=== PATIENT | female | born 2005 | race Caucasian/White ===

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

== ENCOUNTER 2025-01-05 07:26 | Outpatient (CLI) | payer MEDICAID, SELFPAY ==
[2025-01-05 09:35] VITALS: BP 127/73; PULSE 92; TEMP 36.8
[2025-01-05 09:37] VITALS: BP 127/73; PULSE 92
[2025-01-05 10:41] LABS: Hemoglobin A1C 6.4 % (<5.7)
--- NOTE | 2025-02-01 11:46 | W.OBNST ---
Date of service: 01/06/25 Time of Service: 12:00 NST Evaluation Reason for NST Reasons for Nonstress Test: GDM-INSULIN Gestational Age Gestational Age in Weeks and Days: 37 Weeks and 6Days Test and Monitor Explained Test/Monitor Explained: Test Explained and Monitor Explained Vital Signs Blood Pressure: 127/73 Pulse: 92 Temperature: 98.2 F NST Information Date on Monitor: 01/05/25 Time on Monitor: 09:33 Date off Monitor: 01/05/25 Time off Monitor: 09:57 Total Time on Monitor: 24 NST Interventions: PO Hydration NST Evaluation Patient States Movement: Present FHR Baseline: 140 Variability: Moderate 6-25 bpm Accelerations: 15x15 Decelerations: None NST Results: Reactive Note Ultrasound Done: N/A. NST Note Note: Category 1, reactive NST. NST Reviewed and Verified by: Jossy Mccann
[2025-02-01 11:47] VITALS: BP 127/73; PULSE 92; TEMP 36.8
== END 2025-01-05 10:00 ==
LOC: BCD 08:28 → OBS 09:33
PROVIDERS: Obstetrics & Gynecology; Visit Provider Obstetrics & Gynecology
DX: O24.414 Gestational diabetes mellitus in pregnancy, insulin controlled (principal); Z3A.37 37 weeks gestation of pregnancy
CPT/HCPCS: 36415; 59025; 83036

== ENCOUNTER 2025-01-07 07:40 | Outpatient (CLI) | payer MEDICAID, SELFPAY ==
[2025-01-07 15:38] VITALS: BP 130/77; PULSE 104
[2025-01-07 15:40] VITALS: BP 130/77; PULSE 104; TEMP 36.6
[2025-01-07 16:23] VITALS: BP 130/77; PULSE 104; TEMP 36.6
--- NOTE | 2025-01-07 16:39 | W.OBNST ---
Date of service: 01/07/25 Time of Service: 16:39 NST Evaluation Reason for NST Reasons for Nonstress Test: GDM-INSULIN Gestational Age Gestational Age in Weeks and Days: 36 Weeks and 3Days Test and Monitor Explained Test/Monitor Explained: Test Explained, Monitor Explained and Patient Verbalized Understanding Vital Signs Blood Pressure: 130/77 Pulse: 104 Temperature: 97.9 F NST Information Date on Monitor: 01/07/25 Time on Monitor: 15:40 Date off Monitor: 01/07/25 Time off Monitor: 16:20 Total Time on Monitor: 40 NST Interventions: PO Hydration NST Evaluation Patient States Movement: Present FHR Baseline: 130 Variability: Moderate 6-25 bpm Accelerations: 15x15 Decelerations: None NST Results: Reactive Note Ultrasound Done: N/A. NST Note Note: Category 1, reactive nonstress test. Twice weekly NSTs. NST Reviewed and Verified by: Jossy Mccann
[2025-01-07 16:40] VITALS: BP 130/77; PULSE 104; TEMP 36.6
== END 2025-01-07 16:35 ==
LOC: BCD 09:55 → OBS 15:30
PROVIDERS: Visit Provider Obstetrics & Gynecology
DX: O24.414 Gestational diabetes mellitus in pregnancy, insulin controlled (principal); Z3A.36 36 weeks gestation of pregnancy
CPT/HCPCS: 59025

== ENCOUNTER 2025-01-11 15:13 | Outpatient (CLI) | payer MEDICAID, SELFPAY ==
[2025-01-11 15:30] VITALS: BP 134/72; PULSE 83; TEMP 36.9
[2025-01-11 15:46] VITALS: BP 134/72; PULSE 83
[2025-01-11 16:07] VITALS: BP 134/72; PULSE 83; TEMP 36.9
--- NOTE | 2025-01-11 16:52 | W.OBNST ---
Date of service: 01/11/25 Time of Service: 16:53 NST Evaluation Reason for NST Reasons for Nonstress Test: GDM-INSULIN Gestational Age Gestational Age in Weeks and Days: 37 Weeks and 0Days Test and Monitor Explained Test/Monitor Explained: Test Explained Vital Signs Blood Pressure: 134/72 Pulse: 83 Temperature: 98.4 F Urine Results Urine Protein: Positive Urine Ketones: Positive Urine Glucose: Negative Urine Blood: Negative NST Information Date on Monitor: 01/11/25 Time on Monitor: 15:30 Date off Monitor: 01/11/25 Time off Monitor: 16:00 Total Time on Monitor: 30 NST Interventions: PO Hydration NST Evaluation Patient States Movement: Present FHR Baseline: 125 Variability: Moderate 6-25 bpm Accelerations: 15x15 Decelerations: None NST Results: Reactive Note Ultrasound Done: N/A. NST Note Note: Category 1, reactive NST. Reasonable glycemic control. Will increase NPH in the morning from 20 to 24 units. Continue surveillance. Labor induction discussed. Scheduled 01/17 NST Reviewed and Verified by: Jossy Mccann
[2025-01-11 16:54] VITALS: BP 134/72; PULSE 83; TEMP 36.9
== END 2025-01-11 16:43 | disposition home health service (06) ==
LOC: BCD 15:18 → OBS 15:22
PROVIDERS: Visit Provider Obstetrics & Gynecology
DX: O24.414 Gestational diabetes mellitus in pregnancy, insulin controlled (principal); Z3A.37 37 weeks gestation of pregnancy
CPT/HCPCS: 59025

== ENCOUNTER 2025-01-17 05:13 | Inpatient (IN) | payer MEDICAID, SELFPAY ==
[2025-01-17] VITALS (11 sets, daily range): BP systolic 127–157; BP diastolic 76–94; PULSE 73–95; RESP 14–18; TEMP 36.3–36.9; O2SAT 98–99; BMI 40.1
[2025-01-17 06:24] LABS: Abs Immature Grans 0.03 10^3/uL (0.0-0.06); HCT 30.9 % (36.0-46.0); HGB 9.7 g/dL (11.2-15.7); Immature Grans % 0.3 %; MCH 24.3 pg (27.0-33.0); MCHC 31.4 % (32.0-36.0); MCV 77 fL (80-95); MPV 10.5 fL (8.0-11.0); Platelet Count 300 10^3/uL (130-400); RBC 3.99 10^6/uL (3.93-5.22); RDW 14.7 % (11.7-14.6); RDW-SD 41.2 fL; WBC 9.57 10^3/uL (4.4-10.8)
[2025-01-17 06:39] LABS: ALT 12 U/L (14-59); AST 13 U/L (15-37); Albumin 2.3 g/dL (3.4-5.0); Alkaline Phosphatase 102 U/L (46-116); Anion Gap 10.7 mmol/L (3-11); BUN 11 mg/dL (7-18); Bilirubin, Total 0.4 mg/dL (0.2-1.0); CO2 23.3 mmol/L (21.0-32.0); Calcium 8.7 mg/dL (8.5-10.1); Chloride 103 mmol/L (98-107); Estimated GFR 132.52 (mL/min/1.73m2); Glucose 106 mg/dL (74-106); Potassium 4.1 mmol/L (3.5-5.1); Sodium 137 mmol/L (136-145); Total Protein 6.8 g/dL (6.4-8.2)
--- NOTE | 2025-01-17 06:40 | W.PM.OBHPL1 ---
Date of service: 01/17/25 Time of Service: 06:40 Assessment and Plan Assessment and plan (1) : Status: Acute Assessment and plan: Patient is a 19-year-old female primigravida at 37 weeks and 4 days. She has had elevated blood pressures prior to , and currently has normal blood pressure and is not on medication, however risk is present. She also has diabetes for which she has been taking insulin for glycemic control. More recently she has been on 26 units of NPH in the morning and 36 units of NPH in the evenings. She reports good glycemic control at this point. We will monitor her blood sugars every 4 hours throughout her labor and treat accordingly. She has a category 1, reactive NST today with a cervix that is 1, 50%, mid position, soft and having irregular contractions. Misoprostol, 25 mcg dose was placed this morning. She is known to be group B strep positive. Orders are placed for antibiotic prophylaxis once active. (2) Pregestational diabetes mellitus, modified White class C: Status: Acute Assessment and plan: Labor induction today (3) Susceptible to varicella (non-immune), currently : Status: Acute Assessment and plan: Varicella vaccine postdelivery (4) Group B Streptococcus carrier, +RV culture, currently : Status: Acute Assessment and plan: Penicillin ordered when active (5) Chronic hypertension affecting : Status: Acute Assessment and plan: Monitor blood pressures OB-HPI Labor/Delivery History of Present Illness Reason for Visit: IOL Chief Complaint: Scheduled Induction of Labor Indication for Induction: Chronic Hypertension and Gestational Diabetes. SAMANTHA Calculator Estimated Delivery Date Method Current WG Current Estimate 02/04/25 Ultrasound #2 37w 3d Other Estimates 02/11/25 LMP (Uncertain) 36w 3d 02/01/25 Ultrasound #1 37w 6d Comments: Patient seen in the [facility] for labor induction. She is a prime up with an EDC of 02/04/2025. She is currently 37 weeks and 3 days. She has a complicated by social situation orders, anemia with a hemoglobin of 9.7 today, and gestational diabetes with poor control. Overall, more recently, she has had higher insulin requirements with 26 units of NPH in the morning and 30 6 in the evening. She reports fastings are less than 95 with an occasional elevated 2-hour due to dietary indiscretions. Recently, baby's been moving and active. She has no signs or symptoms of preeclampsia. We do lengthy conversation today regarding labor induction which includes prolonged labor, increased risk of bleeding, need for cervical ripening initially. She has good understanding of these. She will have pain control as needed. She is group B strep positive, and will have antibiotic prophylaxis when a in active labor. She will have active management of the third stage and will have careful monitoring of blood loss, particularly in the face of a hemoglobin of 9.7 this morning. All of her questions have been answered and patient understands the risks and benefits of labor induction. She does understand that with late deliveries, and in the face of gestational diabetes, baby may require some amount of support postdelivery. This includes but not limited to respiratory support, pediatrics in attendance if necessary. This morning, she will have cervical ripening initially with misoprostol vaginally. Baseline laboratory studies were obtained. All questions answered History of Present Expected Delivery Route/Plan - MD (pre-gest DM, HTN, LFT's) FOB/not together - Rafi (first child) may not be involved BB Specific Issues/Plan 1. Preexisting DM: - Early 1hr OGTT 154; 3hr OGTT F 116, 1Hr 153, 2hr 188, 3hr 120 - POC QID glucose tracking: started 09/14/24; inconsistent recordings w/frequent elevations & inconsistency - A1C: 6.5 (09/14) - Nutrition consult: Seen 11/23 - MFM consult: Completed 12/02 - Growth US's q4 weeks: needs 36wk sono - screening: Twice weekly NSTs initiated 12/20; Fri/ - Current meds: NPH 14 U AM / 36 U PM (as of 12/30) - Anticipate delivery 39wks or earlier if not well controlled 2. Chronic HTN no meds: - Baseline PreE labs: slightly elevated LFT's, nml plts, nml pr/cr ratio - Start baby ASA - CMP q trimester (normal 09/29), Hep panel (negative), 24 hr protein (Reminded again 10/25, UPCR normal) 3. 5P's positive. Initial UDS=neg, 28wk ___ 4. Social/Community Needs - Apt made with 09/14/24 5. Varicella non-immune 6. Obesity in : - Starting BMI / weight: 39 / 220 lbs - Early 1hr OGTT: 7. H/O transamnitis - ALT and AST: 98 and 41 (08/26/24); 20 and 10 (09/29/24) 8. Single umbilical artery - echocardiogram pending 9. GBS positive - As of 12/30 *SCHEDULED FOR IOL FOR 37 09/17 ON 01/17/25 AT 5 AM *Repeat A1C 01/05 *Provide with note for work regarding IOL and need for twice weekly NSTs on 01/05 Review of Systems All systems reviewed & are unremarkable except as noted in HPI and below Eyes Eyes: Reports as per HPI and Reports system reviewed and no additional complaints, except as documented ENT Ears, Nose, Mouth, and Throat: Reports system reviewed and no additional complaints, except as documented and Reports as per HPI Cardiovascular Cardiovascular: Reports system reviewed and no additional complaints, except as documented, Denies chest pain and Denies irregular heart rhythm Respiratory Respiratory: Reports system reviewed and no additional complaints, except as documented, Denies chest congestion and Denies cough Gastrointestinal Gastrointestinal: Reports system reviewed and no additional complaints, except as documented Genitourinary Genitourinary: Reports system reviewed and no additional complaints, except as documented Neurologic Neurologic: Reports system reviewed and no additional complaints, except as documented PFSH All Active Problems (Updated 01/17/25 @ 06:53 by Jossy Mccann DO) Group B Streptococcus carrier, +RV culture, currently (Acute) Decreased movement (Acute) Food insecurity (Acute) Elevated liver enzymes (Acute) Chronic hypertension (Acute) Financial insecurity (Acute) Elevated LFTs (Acute) Pregestational diabetes mellitus, modified White class C (Acute) Susceptible to varicella (non-immune), currently (Acute) Chronic hypertension affecting (Acute) BMI 40.0-44.9, adult (Acute) (Acute) Depression (Chronic) Anxiety (Chronic) Medical History Family history of diabetes mellitus in grandmother Family history of diabetes during Elevated glucose Asthma Acute stress reaction Snoring (08/15/16) Tonsillar hypertrophy (10/07/16) Dysmenorrhea in adolescent OCP started 06/2019 Family History Mother Mental disorder DEPRESSION AND ANXIETY Gestational diabetes Substance use disorder off and on about 5 years, clean now GRANDPARENT Diabetes MGM Asthma MGM Social History Smoking/Tobacco Use Status: Never Second Hand Exposure: Yes Smoking risk assessment performed?: Yes Alcohol Intake: never Drug use: Rarely Substance use type: does not use Details: one time tried an edible with marijuana Adopted: No Foster care: No Housing: apartment Education Level: high school Details: [employer] 23-24 Pets and animals: Yes (1 bunny) Pets and animals: dog(s) Current gender identity: female What type of physical activity do you participate in: other Details: Lacrosse, basketball Seatbelt use: always Helmet use: Yes Helmet use: always Water heater temp set <120 deg: Yes Fire extinguisher in home: Yes Carbon monox detector in home: Yes Firearms in home: No Do you feel safe at home: Yes Do you feel safe in your relationship?: Yes History History 1 Para 0 Hx # Term Pregnancies 0 Multiple births Hx # Pregnancies Ectopic pregnancies AB induced Hx Number of Living Children AB spontaneous Meds Allergies and Home Medications Allergies Allergy/AdvReac Type Severity Reaction Status Date / Time cabbage Allergy Intermediate HIVES Verified 12/30/24 13:39 No Known Drug Allergies Allergy Other (See Verified 12/30/24 13:39 Comment) Home Medications ?Medication ?Instructions ?Recorded ?Confirmed ?Type inhalational spacing device #1 ea 11/25/22 01/17/25 Rx (Aerochamber MV spacer) vitamin #56-iron 35 mg 1 cap PO DAILY #90 caps 07/12/24 01/17/25 Rx and 5 mg-folic acid 1 mg-dha capsule alcohol swabs 1 pad topical QID #100 ea 09/14/24 01/17/25 Rx blood-glucose meter (OneTouch #1 ea 09/14/24 01/17/25 Rx Verio Flex Meter) pen needle, diabetic 33 gauge x #100 ea 11/03/24 01/17/25 Rx 5/16 (Comfort EZ Pen [place]) lancets 30 gauge (Onetouch Delica #100 ea 11/10/24 01/17/25 Rx Safety Lancet) blood sugar diagnostic (OneTouch #100 ea 11/30/24 01/17/25 Rx Verio test strips) insulin NPH isoph U-100 human 100 20 unit (0.2 mL) subcut QAM 90 01/07/25 01/17/25 Rx unit/mL (3 mL) subcutaneous pen days #18 mL (Humulin N NPH U-100 Insulin KwikPen) insulin NPH isoph U-100 human 100 34 unit (0.34 mL) subcut QHS 90 01/07/25 01/17/25 Rx unit/mL (3 mL) subcutaneous pen days #30.6 mL (Humulin N NPH U-100 Insulin KwikPen) Exam Physical Exam Vital signs: Temp Pulse Resp BP Pulse Ox 97.7 F 85 17 127/86 98 01/17/25 06:02 01/17/25 06:02 01/17/25 06:02 01/17/25 06:02 01/17/25 06:02 Vital Signs Reviewed: Yes Constitutional Constitutional: no acute distress Detailed Labor and Delivery Exam Dilation: 1 Effacement (%): 50 station: -3 Cervix position: mid Consistency: soft Larsen Score: Cervical Points Exam 0 1 2 3 Dilation Closed 1-2cm 3-4 cm 5-6cm Effacement 0-30% 40-50% 60-70% 80% Consistency Firm Medium Soft Station -3 -2 -1,0 +1,+2 Position Posterior Mid Anterior LARSEN Score(Cervical Ripeness Score): 4 Contraction Frequency(min): 4 Contraction Duration(sec): 60 Contraction Intensity: Mild Fetus A Heart Rate Baseline: 125 Monitor Accelerations: 15 X 15 Monitor Decelerations: None Variability: Moderate (6-25 BPM) Presentation: Vertex HEENT Exam HEENT Exam: Normal Neck Exam Neck Exam: Normal Chest/Brest/Axilla Exam Chest Exam: Normal Respiratory Exam Respiratory Exam: Normal Cardiovascular Exam Cardiovascular Exam: Normal Results Results Group Beta Strep: Positive Blood Type: A+ Rubella Status: Immune Varicella Immunity: Nonimmune Abnormal Lab Findings: Abnormal Labs 01/17/25 06:08 Hgb 9.7 L Hct 30.9 L MCV 77 L MCH 24.3 L MCHC 31.4 L RDW 14.7 H Ultrasound OB Ultrasound for ANDREA. (12) Indication: labor induction, DM Total ANDREA: 12 Exam complete and Ultrasound for presentation. Indication: IOL Presentation: Cephalic. Exam complete. Risk Assessment Risk for Shoulder Dystocia Historical/Initial OB: POSITIVE FOR: Pre- BMI>30; NEGATIVE FOR: Pelvic Abnormality, Previous Shoulder Dystocia or Previous Macrosomia Increased Risk?: Yes Delivery Plan @ 36wks: IOL at 37 4/7 Risk for Pre-Eclampsia Daily Dose ASA Indicated: Yes Date Initiated/Initials: 08/26/24 Yes, if one or more: POSTIVE FOR: Chronic HTN (questionable white coat syndrome); NEGATIVE FOR: Hx Pre-E/Gest HTN, Multiple Gestation, Pre-gestational DM, Renal Disease, Systemic Lupus or APA Syndrome Yes, if 2 or more: POSITIVE FOR: Nulliparity and BMI>30 Risk for Post- Hemorrhage Initial: NEGATIVE FOR: Multiple Gestation, Previous PPH, Known Clotting Deficiency, Grand Multiparity or Anticoagulation At Risk?: No Counseled re: Active Management: Yes Date/Initials: KJ 01/17/25 Risks Reviewed Risks Reviewed Upon Admission: Yes
[2025-01-17] MEDS: miSOPROStol 25 MCG TAB VG ×2 (06:54→12:30)
[2025-01-17] MEDS: Insulin NPH-Human 300 UNITS/3 ML PEN 26 UNIT SC (08:45)
[2025-01-17] MEDS: Normal Saline Flush 10 ML SYR IVP ×3 (08:47→19:50)
--- NOTE | 2025-01-17 17:50 | W.ANESPRE ---
General Info Date of Service Date Performed: 01/17/25 Height: 5 ft 3 in Weight: 102.965 kg Body Mass Index (BMI): 40.1 Meds Allergies and Home Medications Allergies Allergy/AdvReac Type Severity Reaction Status Date / Time cabbage Allergy Intermediate HIVES Verified 12/30/24 13:39 No Known Drug Allergies Allergy Other (See Verified 12/30/24 13:39 Comment) Home Medication ?Medication ?Instructions ?Recorded inhalational spacing device #1 ea 11/25/22 (Aerochamber MV spacer) vitamin #56-iron 35 mg 1 cap PO DAILY #90 caps 07/12/24 and 5 mg-folic acid 1 mg-dha capsule alcohol swabs 1 pad topical QID #100 ea 09/14/24 blood-glucose meter (HolganixTouch #1 ea 09/14/24 Verio Flex Meter) pen needle, diabetic 33 gauge x #100 ea 11/03/2411/26 (Comfort EZ Pen [place]) lancets 30 gauge (Onetouch Delica #100 ea 11/10/24 Safety Lancet) blood sugar diagnostic (HolganixTouch #100 ea 11/30/24 Verio test strips) insulin NPH isoph U-100 human 100 20 unit (0.2 mL) subcut QAM 90 01/07/25 unit/mL (3 mL) subcutaneous pen days #18 mL (Humulin N NPH U-100 Insulin KwikPen) insulin NPH isoph U-100 human 100 34 unit (0.34 mL) subcut QHS 90 01/07/25 unit/mL (3 mL) subcutaneous pen days #30.6 mL (Humulin N NPH U-100 Insulin KwikPen) Current Visit Medications: Current Medications Generic Name Dose Route Start Last Admin Trade Name Freq PRN Reason Stop Dose Admin Ringer's Solution 1,000 mls @ 200 mls/hr 01/17/25 06:45 IV INFUSION EMELI Penicillin G Potassium 3,000, 50 mls @ 100 mls/hr 01/17/25 10:00 000 units/ Sodium Chloride IVPB Q4H EMELI IV Miscellaneous Supplies 1 each 01/17/25 06:45 Iv Access IV DIRECTED EMELI Misoprostol 25 mcg 01/17/25 07:00 01/17/25 12:30 Misoprostol 25 Mcg Tab VG 25 mcg Q4H EMELI Administration Sodium Chloride 0 ml 01/17/25 05:47 Normal Saline Flush 10 Ml Syr IVP PRN PRN Sodium Chloride 0 ml 01/17/25 08:30 01/17/25 08:47 Normal Saline Flush 10 Ml Syr IVP 10 ml BID EMELI Administration Sodium Chloride 0 ml 01/17/25 06:35 Normal Saline 10 Ml Vial IJ DIRECTED PRN Terbutaline Sulfate 0.25 mg 01/17/25 06:35 Terbutaline 1 Mg/Ml Vial SC PRN PRN Zolpidem Tartrate 10 mg 01/17/25 21:00 Zolpidem 5 Mg Tab PO 01/18/25 06:00 2100 EMELI PFSH Active Problems Active Problems: Problem Status Onset Code Group B Streptococcus carrier, +RV culture, currently Acute O99.820 Decreased movement Acute O36.8190 Food insecurity Acute Z59.41 Elevated liver enzymes Acute R74.8 Chronic hypertension Acute I10 Financial insecurity Acute Z59.86 Elevated LFTs Acute R79.89 Pregestational diabetes mellitus, modified White class C Acute O24.319 Susceptible to varicella (non-immune), currently Acute O09.899, Z28.39 Chronic hypertension affecting Acute O10.919 BMI 40.0-44.9, adult Acute Z68.41 Acute Z34.90 Depression Chronic F32.9 Anxiety Chronic F41.9 Medical History Medical History Family history of diabetes mellitus in grandmother Family history of diabetes during Elevated glucose Asthma Acute stress reaction Snoring (08/15/16) Tonsillar hypertrophy (10/07/16) Dysmenorrhea in adolescent OCP started 06/2019 Tobacco Smoking/Tobacco Use Status: Never Passive smoking exposure: Yes (Mother, outside only) Second hand exposure: Yes Alcohol Alcohol Intake: never Substance Use Substance use: Rarely Substance use type: does not use Details: one time tried an edible with marijuana Prental History History 1 Para 0 Hx # Term Pregnancies 0 Multiple births Hx # Pregnancies Ectopic pregnancies AB induced Hx Number of Living Children AB spontaneous Vital Signs and Lab Results Vital Signs Most Recent Vital Signs in EMR: Most Recent Vital Signs Temp Pulse Resp BP Pulse Ox 36.7 C 74 14 140/92 H 98 01/17/25 14:36 01/17/25 16:33 01/17/25 16:32 01/17/25 16:32 01/17/25 16:33 Point of Care Results Point of Care Results: Finger Stick Blood Glucose 118 01/17/25 14:39 Lab Results 01/17/25 06:08 01/17/25 06:08 Blood Type / Crossmatch: Antibody Screen NEGATIVE Today Complete Blood Count: WBC, (4.4-10.8) 9.57 10^3/uL Today, 06:08 RBC, (3.93-5.22) 3.99 10^6/uL Today, 06:08 Hgb, (11.2-15.7) 9.7 g/dL L Today, 06:08 Hct, (36.0-46.0) 30.9 % L Today, 06:08 Plt Count, (130-400) 300 10^3/uL Today, 06:08 Complete Metabolic Panel: Sodium, (136-145) 137 mmol/L Today, 06:08 Potassium, (3.5-5.1) 4.1 mmol/L Today, 06:08 Chloride, (98-107) 103 mmol/L Today, 06:08 Carbon Dioxide, (21.0-32.0) 23.3 mmol/L Today, 06:08 BUN, (7-18) 11 mg/dL Today, 06:08 Creatinine, (0.55-1.02) 0.6 mg/dL Today, 06:08 Est GFR (CKD-EPI 2020), (mL/min/1.73m2) 132.52 Today, 06:08 Calcium, (8.5-10.1) 8.7 mg/dL Today, 06:08 Albumin, (3.4-5.0) 2.3 g/dL L Today, 06:08 Glucose, (74-106) 106 mg/dL Today, 06:08 Hemoglobin A1c, (<5.7) 6.4 % H 01/05/25, 09:54 Liver Function Panel: ALT, (14-59) 12 U/L L Today, 06:08 AST, (15-37) 13 U/L L Today, 06:08 Anesthesia Assessment and Plan Anesthesia History Personal History: No History of Anesthesia Complications Family History: No Family History of Anesthesia Complications Exercise Tolerance Exercise Tolerance: Metabolic Equivalents>4 Pertinent Negatives Pertinent Negatives: No Symptoms of GERD Cardiac & Pulmonary Exam Cardiac Exam: Normal S1/S2 Heart Sounds Pulmonary Exam: Clear Bilateral Breath Sounds Implantable Cardiac Device Does patient have a Pacemaker or an ICD?: No Airway Exam Known Difficult Airway: No Mallampati Class: 2 Mouth Opening: Normal (> 3cm) Thyromental Distance: Greater than 3 cm Neck Range of Motion: Full ROM Neck Circumference: Normal Teeth Condition: Generalized Poor Dentition ASA Classification ASA Score: ASA 2 Emergency Case?: No NPO Status NPO Status: NPO Clears >2 hours, Solids >8 hours Status Status: Confirmed (37(+) weeks) Anesthesia Plan Resuscitation Status: Full Code Anesthesia Technique: Labor Epidural Airway Planned: Natural Airway Monitors Used: Standard Monitors
[2025-01-17] MEDS: Penicillin G POT. 5,000,000 UNITS in Normal Saline 100 ML 200 UNITS IVPB (18:25)
[2025-01-17] MEDS: AMPICILLIN SODIUM 2 GM in Normal Saline 100 ML IVPB (19:40)
[2025-01-17] MEDS: Lactated Ringers 1,000 ML 200 ML IV (19:40)
[2025-01-17] MEDS: Insulin NPH-Human 300 UNITS/3 ML PEN 36 UNIT SC (20:29)
[2025-01-17] MEDS: Zolpidem 5 MG TAB 10 MG PO (22:07)
--- NOTE | 2025-01-17 23:18 | W.PM.PROGNOT ---
Date of Service Date of service: 01/17/25 Time of Service: 08:00 Assessment and Plan Assessment and plan (1) Gestational diabetes: Status: Acute Assessment and plan: 19 yo at 37 3/7 as dated by 12 wk US presented to L&D this morning for IOL for poorly controlled pre-gestational diabetes in the setting of chronic HTN, obesity in , single-umbilical artery, VZV non-immune, and GBS positive. She recieved a dose of vaginal cytotec this morning. She reports feeling well. She enjoyed a good breakfast and BS checks have been appropriate. She will continue to undergo induction with misoprostol. PCn written to be initiated later. Exam Narrative Exam Narrative: Well nourished female in no immediate distress. In good spirits. FHT cat 1, toco: rare. Objective Last Vital Signs Temp 98.4 F 01/17/25 21:45 Pulse 82 01/17/25 21:45 Resp 16 01/17/25 21:45 BP 139/94 H 01/17/25 21:45 Pulse Ox 99 01/17/25 21:45 Laboratory Results - last 24 hr 01/17/25 06:08 WBC 9.57 RBC 3.99 Hgb 9.7 L Hct 30.9 L MCV 77 L MCH 24.3 L MCHC 31.4 L RDW 14.7 H Plt Count 300 MPV 10.5 Immature Gran % 0.3 Neutrophils % 65.1 Lymphocytes % 27.3 Monocytes % 6.6 Eosinophils % 0.4 Basophils % 0.3 Nucleated RBC % 0.0 Absolute Neutrophils 6.23 Absolute Lymphocytes 2.61 Absolute Monocytes 0.63 Absolute Eosinophils 0.04 Absolute Basophils 0.03 Sodium 137 Potassium 4.1 Chloride 103 Carbon Dioxide 23.3 Anion Gap 10.7 BUN 11 Creatinine 0.6 Est GFR (CKD-EPI 2020) 132.52 Glucose 106 Calcium 8.7 Total Bilirubin 0.4 AST 13 L ALT 12 L Alkaline Phosphatase 102 Total Protein 6.8 Albumin 2.3 L ABO/Rh A Positive Antibody Screen NEGATIVE Time Spent with Patient Time Spent with Patient: 25-34 minutes Time was spent: preparing to see the patient(eg.review tests), obtaining and/or reviewing separately otained hiistory, ordering medications,tests, procedures, referring, communicating with other health child care center assistant director, indepentently interpreting results and counseling the patient
--- NOTE | 2025-01-17 23:46 | PGE_ITS ---
Date of Service Date of service: 01/17/25 Time of Service: 12:00 Assessment and Plan Assessment and plan (1) Gestational diabetes: Status: Acute Assessment and plan: Patient is found resting comfortably in her bed. She reports being able to feel the contractions but only mildly. SVE remained unchanged and she recieved her next dose of vaginal misoprostol. We had a discussed regarding the possible utility of a Cook catheter in addition to Misoprostol and she is interested. Materials collected by nurse. (2) Chronic hypertension affecting : Status: Acute Exam Narrative Exam Narrative: Well nourished female in no immediate distress. Happy. SVE 1-2/thick/-3/medium/midline Objective Last Vital Signs Temp 98.4 F 01/17/25 21:45 Pulse 82 01/17/25 21:45 Resp 16 01/17/25 21:45 BP 139/94 H 01/17/25 21:45 Pulse Ox 99 01/17/25 21:45 Laboratory Results - last 24 hr 01/17/25 06:08 WBC 9.57 RBC 3.99 Hgb 9.7 L Hct 30.9 L MCV 77 L MCH 24.3 L MCHC 31.4 L RDW 14.7 H Plt Count 300 MPV 10.5 Immature Gran % 0.3 Neutrophils % 65.1 Lymphocytes % 27.3 Monocytes % 6.6 Eosinophils % 0.4 Basophils % 0.3 Nucleated RBC % 0.0 Absolute Neutrophils 6.23 Absolute Lymphocytes 2.61 Absolute Monocytes 0.63 Absolute Eosinophils 0.04 Absolute Basophils 0.03 Sodium 137 Potassium 4.1 Chloride 103 Carbon Dioxide 23.3 Anion Gap 10.7 BUN 11 Creatinine 0.6 Est GFR (CKD-EPI 2020) 132.52 Glucose 106 Calcium 8.7 Total Bilirubin 0.4 AST 13 L ALT 12 L Alkaline Phosphatase 102 Total Protein 6.8 Albumin 2.3 L ABO/Rh A Positive Antibody Screen NEGATIVE Time Spent with Patient Time Spent with Patient: 25-34 minutes Time was spent: preparing to see the patient(eg.review tests), obtaining and/or reviewing separately otained hiistory, ordering medications,tests, procedures, referring, communicating with other health home health care coordinator, indepentently interpreting results, counseling the patient and care coordination
--- NOTE | 2025-01-17 23:49 | PGE_ITS ---
Date of Service Date of service: 01/17/25 Time of Service: 17:00 Assessment and Plan Assessment and plan (1) Chronic hypertension affecting : Status: Acute Assessment and plan: Patient noted to be raoul more frequently on the monitor; FHT cat 1. Patient is notably feeling the contractions. She was consented for Cook. Cook was placed without issue according to industry standards. Patient states notable discomfort from 30 cc's in each balloon; reduced to 25 cc's in each balloon and she tolerated it better. Will hold off a pharmacological induction agent for now given discomfort. PCN ordere to be started; however, patient unable to use IV PCN; therefore, Ampicillin is ordered. (2) Gestational diabetes: Status: Acute Exam Narrative Exam Narrative: Patient feeling more uncomfortable. Wincing modestly with contractions. Cooperative and calm. Objective Last Vital Signs Temp 98.4 F 01/17/25 21:45 Pulse 82 01/17/25 21:45 Resp 16 01/17/25 21:45 BP 139/94 H 01/17/25 21:45 Pulse Ox 99 01/17/25 21:45 Laboratory Results - last 24 hr 01/17/25 06:08 WBC 9.57 RBC 3.99 Hgb 9.7 L Hct 30.9 L MCV 77 L MCH 24.3 L MCHC 31.4 L RDW 14.7 H Plt Count 300 MPV 10.5 Immature Gran % 0.3 Neutrophils % 65.1 Lymphocytes % 27.3 Monocytes % 6.6 Eosinophils % 0.4 Basophils % 0.3 Nucleated RBC % 0.0 Absolute Neutrophils 6.23 Absolute Lymphocytes 2.61 Absolute Monocytes 0.63 Absolute Eosinophils 0.04 Absolute Basophils 0.03 Sodium 137 Potassium 4.1 Chloride 103 Carbon Dioxide 23.3 Anion Gap 10.7 BUN 11 Creatinine 0.6 Est GFR (CKD-EPI 2020) 132.52 Glucose 106 Calcium 8.7 Total Bilirubin 0.4 AST 13 L ALT 12 L Alkaline Phosphatase 102 Total Protein 6.8 Albumin 2.3 L ABO/Rh A Positive Antibody Screen NEGATIVE Time Spent with Patient Time Spent with Patient: 25-34 minutes Time was spent: preparing to see the patient(eg.review tests), obtaining and/or reviewing separately otained hiistory, ordering medications,tests, procedures, referring, communicating with other health director of health care marketing, indepentently interpreting results, counseling the patient and care coordination
[2025-01-18] VITALS (90 sets, daily range): BP systolic 122–180; BP diastolic 71–105; PULSE 54–115; RESP 16–24; TEMP 36.8–37.3; O2SAT 88–100
[2025-01-18] MEDS: AMPICILLIN SODIUM 1 GM in Normal Saline 50 ML IVPB ×5 (00:57→22:11)
--- NOTE | 2025-01-18 05:53 | W.PM.PROGNOT ---
Date of Service Date of service: 01/18/25 Time of Service: 05:54 Assessment and Plan Assessment and plan (1) Pregestational diabetes mellitus, modified White class C: Status: Acute (2) Chronic hypertension affecting : Status: Acute Assessment and plan: Patient rested through the evening with one dose of Ambien. Cook catheter removed this morning without issue. Plan to initiate Pitocin after breakfast. Exam Narrative Exam Narrative: Well nourished female in no immediate found sleeping on her right side. No bleeding or leakage. Cook catheter removed without issue. SVE 2-3 / th / high / midline / soft Objective Last Vital Signs Temp 98.2 F 01/18/25 04:49 Pulse 71 01/18/25 04:49 Resp 16 01/18/25 04:49 BP 132/81 01/18/25 04:49 Pulse Ox 99 01/18/25 04:49 Laboratory Results - last 24 hr 01/17/25 06:08 WBC 9.57 RBC 3.99 Hgb 9.7 L Hct 30.9 L MCV 77 L MCH 24.3 L MCHC 31.4 L RDW 14.7 H Plt Count 300 MPV 10.5 Immature Gran % 0.3 Neutrophils % 65.1 Lymphocytes % 27.3 Monocytes % 6.6 Eosinophils % 0.4 Basophils % 0.3 Nucleated RBC % 0.0 Absolute Neutrophils 6.23 Absolute Lymphocytes 2.61 Absolute Monocytes 0.63 Absolute Eosinophils 0.04 Absolute Basophils 0.03 Sodium 137 Potassium 4.1 Chloride 103 Carbon Dioxide 23.3 Anion Gap 10.7 BUN 11 Creatinine 0.6 Est GFR (CKD-EPI 2020) 132.52 Glucose 106 Calcium 8.7 Total Bilirubin 0.4 AST 13 L ALT 12 L Alkaline Phosphatase 102 Total Protein 6.8 Albumin 2.3 L ABO/Rh A Positive Antibody Screen NEGATIVE Time Spent with Patient Time Spent with Patient: 25-34 minutes Time was spent: preparing to see the patient(eg.review tests), obtaining and/or reviewing separately otained hiistory, ordering medications,tests, procedures, referring, communicating with other health childcare provider, indepentently interpreting results, counseling the patient and care coordination
[2025-01-18] MEDS: Insulin NPH-Human 300 UNITS/3 ML PEN 26 UNIT SC (08:11)
[2025-01-18] MEDS: Oxytocin/Normal Saline 30 UNITS/500 ML BAG IV (08:28)
--- NOTE | 2025-01-18 13:03 | PGE_ITS ---
Date of Service Date of service: 01/18/25 Time of Service: 13:03 Assessment and Plan Assessment and plan (1) Pregestational diabetes mellitus, modified White class C: Status: Acute (2) Chronic hypertension affecting : Status: Acute Assessment and plan: Patient found resting comfortably. She is sitting up on a yoga ball sipping water. She is feeling her contractions. Pitocin for augmentation is running. She remains intact. heart tones category 1 and contractions are every 2-3 mostly. We discussed decreasing her oral intake to small, frequent snacks and avoiding large meals. She denies any signs or symptoms of preeclampsia, and her blood pressures remain within appropriate limits. Will continue augmenting with Pitocin. Objective Last Vital Signs Temp 98.4 F 01/18/25 12:15 Pulse 88 01/18/25 12:15 Resp 20 01/18/25 12:15 BP 139/85 01/18/25 12:15 Pulse Ox 89 L 01/18/25 12:15 Time Spent with Patient Time Spent with Patient: 25-34 minutes Time was spent: preparing to see the patient(eg.review tests), obtaining and/or reviewing separately otained hiistory, ordering medications,tests, procedures, referring, communicating with other health career development coordinator/teacher, indepentently interpreting results, counseling the patient and care coordination
--- NOTE | 2025-01-18 14:58 | PGE_ITS ---
Date of Service Date of service: 01/18/25 Time of Service: 15:03 Assessment and Plan Assessment and plan (1) Chronic hypertension affecting : Status: Acute (2) Pregestational diabetes mellitus, modified White class C: Status: Acute Assessment and plan: Patient has been on 20 mU Pitocin for 2+ hours without further evidence of effective labor. Will discontinue Pitocin, administer Calcium carbonate and Benadryl, and restart Pitocin after an hour. Exam Narrative Exam Narrative: Well nourished female in no immediate distress. Calm, cooperative. Objective Last Vital Signs Temp 98.4 F 01/18/25 12:15 Pulse 100 H 01/18/25 14:28 Resp 20 01/18/25 14:28 BP 126/74 01/18/25 14:28 Pulse Ox 99 01/18/25 14:28 Time Spent with Patient Time Spent with Patient: 25-34 minutes Time was spent: preparing to see the patient(eg.review tests), obtaining and/or reviewing separately otained hiistory, ordering medications,tests, procedures, referring, communicating with other health health care analyst, indepentently interpreting results, counseling the patient and care coordination
[2025-01-18] MEDS: diphenhydrAMINE 25 MG CAP PO (15:08)
[2025-01-18] MEDS: Calcium Carbonate *TUMS* 500 MG CHEW PO (15:08)
--- NOTE | 2025-01-18 18:24 | W.PM.PROGNOT ---
Date of Service Date of service: 01/18/25 Time of Service: 18:24 Assessment and Plan Assessment and plan (1) Pregestational diabetes mellitus, modified White class C: Status: Acute (2) Chronic hypertension affecting : Status: Acute Assessment and plan: Patient found walking the halls. She is feeling her contractions but they are not disruptive. We discussed AROM and she was consented for it. She wished to wait until her mother arrived. FHT cat 1; contractions q2-3, pit at 10, increased to 12 while in the room. SVE 3/50/-3/soft/midline. AROM@[id number]-clear fluid using a amniohook. Patient and baby tolerated well. Will continue to increase Pitocin as permissible and as needed to titrate to adequate contractions. Objective Last Vital Signs Temp 98.8 F 01/18/25 16:02 Pulse 85 01/18/25 18:22 Resp 20 01/18/25 16:02 BP 152/86 H 01/18/25 18:22 Pulse Ox 100 01/18/25 18:21 Time Spent with Patient Time Spent with Patient: 25-34 minutes Time was spent: preparing to see the patient(eg.review tests), obtaining and/or reviewing separately otained hiistory, ordering medications,tests, procedures, referring, communicating with other health certified social workers in health care, indepentently interpreting results, counseling the patient and care coordination
--- NOTE | 2025-01-18 19:16 | W.ANESNEU ---
Epidural/Spinal Catheter Date Performed: 01/18/25 Procedure Start: 18:54 Procedure Stop: 19:05 Requesting Provider: Vidhya Charles Procedure Location: Obstetrics Reason Performed: Labor Epidural Standard Monitors Applied: Blood Pressure and SpO2 Patient Position: Sitting Sedation Given (Indicate Dose Given): No Sedation given Patient Mental Status: Awake Sterility: Hand Hygiene, Surgical Cap, Surgical Mask, Sterile Gloves, Sterile Drape/Sheet and Chlorhexidine Procedure Location: L4-L5 Interspace Epidural Needle: Tuohy 17 Guage Needle Length: 4 Inch Needle Approach: Midline Epidural Procedure: Skin Prepped, Sterile Drape Placed, 1% Lidocaine to skin and subcutaneous tissue with 25G needle, Tuohy Needle placed, BOB to Saline Used, Epidural Catheter Placed, Negative Heme, Negative CSF Flow and Tuohy Needle Removed Catheter Placed?: Catheter Placed Test Dose (Indicate Dose Given): 5ml 1.5% Lidocaine with 1:200K Epinephrine Given and Negative Test Dose Loss of Resistance Depth (cm): 9 Catheter depth at skin (cm): 15 Dressing: [place] Dressing Placed, Mastisol Used and Dressing reinforced with Tape Epidural Provider Bolus (Indicate Dose Given): None Given Additives (Indicate Dose Given ): None Infusion Medication: Medication Infusion Began Medication Infusion: Ropivacaine 0.1% with Fentanyl 2mcg/ml Maintenance Infusion Rate (ml/hour): 10 PCEA Bolus Dose (ml): 5 Block Level: N/A Paresthesia: None Ultrasound: Not Used Number of Attempts (See previous attempts in note section): 1 Procedure Tolerated: No Complications and Patient tolerated well Procedure Outcome: Successful Performed By: Alejandro Fontenot
--- NOTE | 2025-01-18 19:47 | PGE_ITS ---
Date of Service Date of service: 01/18/25 Time of Service: 22:30 Assessment and Plan Assessment and plan (1) Chronic hypertension affecting : Status: Acute (2) Pregestational diabetes mellitus, modified White class C: Status: Acute Assessment and plan: Patient is s/p epidural placement. Her check immediately after her epidural was unchanged despite notable continued discomfort. Assessment revealed the epidural had never officially been turned on. After turning on the epidural, the patient reported notable improvement in her pain control; however, she seems to have a window in the RLQ. Pitocin is at 14. [facility] cat 1. [place] q3-4. Just recently, I was called to the patients room for elevated blood pressures. She has been in and out of 170's / 90-100's based on pain and contractions. She denies any concerning symptoms and her labs were normal on presentation. I highly suspect these blood pressures are an acute expacerbation of her cHTN induced by her limited pain control. Procardia 10 IR ordered for immediate control. Procardia 30 XL ordered for continued control over time. Objective Last Vital Signs Temp 98.2 F 01/18/25 18:22 Pulse 86 01/18/25 19:43 Resp 20 01/18/25 16:02 BP 156/88 H 01/18/25 19:40 Pulse Ox 99 01/18/25 19:43 Time Spent with Patient Time Spent with Patient: 25-34 minutes Time was spent: preparing to see the patient(eg.review tests), obtaining and/or reviewing separately otained hiistory, ordering medications,tests, procedures, referring, communicating with other health acute care assistant, indepentently interpreting results, counseling the patient and care coordination
[2025-01-18] MEDS: Insulin NPH-Human 300 UNITS/3 ML PEN 36 UNIT SC (22:01)
[2025-01-18] MEDS: NIFEdipine 10 MG CAP PO (22:21)
[2025-01-18] MEDS: NIFEdipine-CR 30 MG TABCR PO (22:35)
--- NOTE | 2025-01-18 23:30 | PGE_ITS ---
Date of Service Date of service: 01/18/25 Time of Service: 23:30 Assessment and Plan Assessment and plan (1) Pregestational diabetes mellitus, modified White class C: Status: Acute (2) Chronic hypertension affecting : Status: Acute Assessment and plan: Patient found resting mostly comfortably; has epidural but epidural has a bit of a window in RLQ. Patient augmenting pain management with nitrous. FHT cat 1. [place]: q2-4 with Pit at 14. SVE /-1. Assured mother of progress. Objective Last Vital Signs Temp 98.8 F 01/19/25 05:59 Pulse 133 H 01/19/25 07:18 Resp 16 01/19/25 06:01 BP 137/73 01/19/25 05:59 Pulse Ox 100 01/19/25 07:18 Time Spent with Patient Time Spent with Patient: 25-34 minutes Time was spent: preparing to see the patient(eg.review tests), obtaining and/or reviewing separately otained hiistory, ordering medications,tests, procedures, indepentently interpreting results, counseling the patient and care coordination
[2025-01-19] VITALS (107 sets, daily range): BP systolic 118–184; BP diastolic 61–86; PULSE 57–162; RESP 16–18; TEMP 36.5–37.9; O2SAT 91–100
[2025-01-19] MEDS: AMPICILLIN SODIUM 1 GM in Normal Saline 50 ML IVPB ×2 (01:36→05:40)
[2025-01-19] MEDS: FentaNYL/ROPIvacaine 2 mcg/ml and 0.1% 200 ML CADD Cassette EP ×2 (03:10→03:17)
[2025-01-19] MEDS: Lactated Ringers 1,000 ML 125 ML IV (03:18)
--- NOTE | 2025-01-19 07:18 | W.PM.PROGNOT ---
Date of Service Date of service: 01/19/25 Time of Service: 07:18 Assessment and Plan Assessment and plan (1) Pregestational diabetes mellitus, modified White class C: Status: Acute (2) Chronic hypertension affecting : Status: Acute Assessment and plan: Patient found resting in bed comfortably on her right side. Reports feeling a little back pressure but no urge to push. SVE finds her complete / +1. Patient sat up in throwns for labor down. Objective Last Vital Signs Temp 98.8 F 01/19/25 05:59 Pulse 133 H 01/19/25 07:18 Resp 16 01/19/25 06:01 BP 137/73 01/19/25 05:59 Pulse Ox 100 01/19/25 07:18 Time Spent with Patient Time Spent with Patient: 25-34 minutes Time was spent: preparing to see the patient(eg.review tests), obtaining and/or reviewing separately otained hiistory, ordering medications,tests, procedures, indepentently interpreting results and counseling the patient
--- NOTE | 2025-01-19 08:56 | OBVDS_ITS ---
Date of service: 01/19/25 Time of Service: 08:58 OB Labor/ Delivery Information Providers Nurse Electrical Instrument Maker: Vidhya Charles Non Destructive Testing Scientist: Marily Petersen Nurse: Radha Bass Nurse: Susan Lynn Labor/Delivery Information Number of Babies in Womb: 1 Steroids Given: None Reason Steroids Not Administered: N/A Group Beta Strep: N/A Antibiotics Administered: Yes Rubella Status: Immune Blood Type: A+ Varicella Immunity: Nonimmune Shoulder Dystocia: No Stages of Labor Onset of Labor Date: 01/19/25 Onset of Labor Time: 12:00 Complete Dilatation Date: 01/19/25 Complete Dilatation Time: 06:58 Labor - Stage 1 Duration: -302 minutes ROM Baby A: 01/18/25 ROM Baby A: 18:15 ROM Total Time- Baby A: [id number] Delivery Date-Baby A: 01/19/25 Delivery Time-Baby A: 08:21 Labor Stage 2 Duration: 1 hours and 23 minutes Placenta Delivery Date-Baby A: 01/19/25 Placenta Delivery Time-Baby A: 08:28 Labor-Stage 3 Duration: 7 minutes Total Length of Labor-Baby A: -219 minutes Placenta Status: Delivered Baby A Infant Gender: Male Gestational Status: Early Term (37-38.6 wks) Gestational Age in Weeks/Days: 38 Weeks and 1 Days Score-1 Minute Interval(Baby A) Heart Rate-1 minute: 100 BPM or Greater Respiratory Effort- 1 minute: Spontaneous/Strong Cry Muscle Tone-1 minute: Active Movement Reflex Response-1 minute: Prompt Response Color-1 minute: Bluish Hands or Feet Total Score-1 minute: 9 Score-5 Minute Interval(Baby A) Heart Rate- 5 minute: 100 BPM or Greater Respiratory Effort-5 minute: Spontaneous/Strong Cry Muscle Tone-5 minute: Active Movement Reflex Response-5 minute: Prompt Response Color-5 minute: [place]/No Cyanosis Total Score- 5 minute: 10 Note: On this day, Sunday, January 19, 2025, this 19-year-old G1 now P1 001 underwent a vaginal delivery at 37 weeks and 4 days to a 3230 gram baby boy (Andrea) over an intact perineum under epidural anesthesia. Patient was brought in on January 17 for an induction of labor for difficulties in controlling pregestational diabetes in the setting of chronic hypertension and two-vessel cord. She was induced with 2 doses of vaginal Cytotec as well as a Cook catheter. She was augmented with Pitocin. She did receive an epidural. GBS prophylaxis was achieved with ampicillin, and she was adequately covered. On the morning of 9 the patient was found to be fully dilated. Her pushing efforts were sufficient. After approximately 1 hour of pushing, she was able to deliver the head in IMLAN. A double nuchal was present and released without issue. The rest of the body delivered in a traditional fashion without issue. The baby was immediately vigorous. The mouth and nose were bulb suctioned, the baby was placed on the maternal abdomen, and delayed cord clamping was observed. The cord was double clamped and cut by the patient's mother under the guidance of the physician. A segment of cord was collected and set aside in the event that the cord gases would be necessary, and cord blood was collected as well. The placenta delivered without issue within 15 minutes following delivery of the baby. Pitocin was immediately initiated. Evaluation of the perineum and vagina found a second-degree perineal laceration which was repaired in a traditional fashion using 2-0 Vicryl. The patient's bleeding was initially a little more brisk than average; therefore, tranexamic acid was called for. While the nurse was working on preparing the tranexamic acid; the patient's bleeding was noted to increase and become quite brisk. 800 mcg of rectal Cytotec was placed. A bimanual exam evacuated a large clot from the uterine cavity, and with this coud? of the uterus was reassuring. I continued with simpson repair of the second-degree. Over the course of the repair, the patient's bleeding was noted to improved slowly. QBL pending. Both mother and baby tolerated the procedure well. Both are recovering appropriately.
[2025-01-19] MEDS: Ibuprofen 600 MG TAB PO (10:09)
[2025-01-19] MEDS: Hamamelis Leaf/Glycerin 100 EACH BOX PR (10:10)
[2025-01-19] MEDS: Dibucaine 1% 28 GM TUBE TP (10:11)
[2025-01-19] MEDS: Docusate Sodium 100 MG CAP PO (10:11)
--- NOTE | 2025-01-19 10:51 | W.ANESPOSTOP ---
Postoperative Evaluation Date, Time and Location Date Performed: 01/19/25 Time Performed: 10:40 Patient Location: Obstetrics Vital Signs Most Recent Imported Vital Signs: Most Recent Vital Signs Temp Pulse Resp BP Pulse Ox 37.1 C 116 H 16 127/73 100 01/19/25 05:59 01/19/25 10:44 01/19/25 06:01 01/19/25 10:44 01/19/25 07:59 Pain Score Most Recent Pain Score: Most Recent Pain Score Pain Level [Abdomen] 0 01/19/25 05:59 Pain Level 3 01/19/25 06:01 Assessment Mental Status: Awake (Alert & Oriented to Patient Baseline) Airway and Respiratory Function: Patent airway with normal (patient baseline) respiratory exam Cardiovascular Function: Hemodynamically Stable (Discussed elevated HR with RN) Hydration Status: Adequately Hydrated Nausea & Vomiting: No Nausea or Vomiting Pain: Pain is tolerable per patient Peripheral Nerve Block: Patient did not receive a nerve block
[2025-01-19] MEDS: Acetaminophen 325 MG TAB 650 MG PO ×2 (17:13→22:29)
[2025-01-19] MEDS: Normal Saline Flush 10 ML SYR IVP (22:44)
[2025-01-20 00:22] VITALS: BP 134/79; PULSE 92; RESP 17; TEMP 36.8; O2SAT 98
[2025-01-20 07:26] LABS: MCH 24.7 pg (27.0-33.0); MCHC 31.7 % (32.0-36.0); MCV 78 fL (80-95); MPV 10.6 fL (8.0-11.0); Platelet Count 222 10^3/uL (130-400); RBC 2.59 10^6/uL (3.93-5.22); RDW 15.2 % (11.7-14.6); RDW-SD 42.6 fL; WBC 13.42 10^3/uL (4.4-10.8)
[2025-01-20 07:40] VITALS: BP 133/77; PULSE 81; RESP 16; TEMP 36.4; O2SAT 98
[2025-01-20 07:57] LABS: HCT 20.2 % (36.0-46.0); HGB 6.4 g/dL (11.2-15.7)
[2025-01-20] MEDS: Acetaminophen 325 MG TAB 650 MG PO ×3 (08:03→22:00)
[2025-01-20] MEDS: NIFEdipine-CR 30 MG TABCR PO (08:03)
[2025-01-20] MEDS: Docusate Sodium 100 MG CAP PO ×2 (08:03→20:29)
[2025-01-20 12:05] VITALS: BP 118/75; PULSE 103; RESP 16; TEMP 36.7; O2SAT 97
[2025-01-20 12:14] LABS: HCT 21.3 % (36.0-46.0); MCH 24.4 pg (27.0-33.0); MCHC 31.5 % (32.0-36.0); MCV 78 fL (80-95); MPV 10.1 fL (8.0-11.0); Platelet Count 228 10^3/uL (130-400); RBC 2.75 10^6/uL (3.93-5.22); RDW 15.4 % (11.7-14.6); RDW-SD 42.6 fL; WBC 12.60 10^3/uL (4.4-10.8)
[2025-01-20 12:30] LABS: HGB 6.7 g/dL (11.2-15.7)
--- NOTE | 2025-01-20 13:05 | W.PM.OBPNV1 ---
Date of service: 01/20/25 Time of Service: 13:06 Assessment and Plan Assessment and plan (1) Normal spontaneous vaginal delivery: Status: Acute Assessment and plan: Patient is day #1 status post vaginal delivery. Overall she is doing well. She had a labor induction and appropriate vaginal . Her male was circumcised today at patient's request. (2) Pregestational diabetes mellitus, modified White class C: Status: Acute Assessment and plan: She had early diagnosis of pre-existing diabetes. During the course of her , she was controlled with NPH insulin both in the morning and afternoon. Since the time of, she has remained euglycemic. She is eating a regular diet. Will continue to monitor her blood sugars. If she has elevation, she may benefit from oral hypoglycemics versus insulin therapy. This was discussed today. (3) Chronic hypertension affecting : Status: Acute Assessment and plan: Currently on Procardia, 30 mg XL daily with good response. Will continue to monitor blood pressure (4) Anemia: Status: Chronic Assessment and plan: Anemia with hemoglobin of 6.7 today, down from 9 at the time of delivery. She did have a modest amount of bleeding. She is asymptomatic from this. She will have her vitamins, iron supplementation, and we would consider iron infusion prior to discharge. All questions were answered today Exam Physical Exam Vital signs: Temp Pulse Resp BP Pulse Ox 97.5 F L 81 16 133/77 98 01/20/25 07:40 01/20/25 07:40 01/20/25 07:40 01/20/25 07:40 01/20/25 07:40 Vital Signs Reviewed: Yes Constitutional Constitutional: no acute distress HEENT Exam HEENT Exam: Normal Neck Exam Neck Exam: Normal Respiratory Exam Respiratory Exam: Normal Cardiovascular Exam Cardiovascular Exam: Normal Fundal Exam Fundus: Below Umbilicus and Firm Extremities Exam Extremity Exam: Edema (1+ bilateral) Skin Exam Skin Exam: Normal Neurological Exam Neurological Exam: Normal Psychiatric Exam Psychiatric Exam: Normal Results Hemoglobin/Hematocrit: Hgb 6.7 g/dL (11.2-15.7) L* 01/20/25 11:55 Hct 21.3 % (36.0-46.0) L 01/20/25 11:55 Abnormal Lab Findings: Abnormal Labs 01/17/25 01/20/25 01/20/25 06:08 05:58 11:55 WBC 13.42 H 12.60 H RBC 2.59 L 2.75 L Hgb 9.7 L 6.4 L* D 6.7 L* Hct 30.9 L 20.2 L* 21.3 L MCV 77 L 78 L 78 L MCH 24.3 L 24.7 L 24.4 L MCHC 31.4 L 31.7 L 31.5 L RDW 14.7 H 15.2 H 15.4 H AST 13 L ALT 12 L Albumin 2.3 L
[2025-01-20 16:05] VITALS: BP 133/83; PULSE 93; RESP 16; TEMP 36.9; O2SAT 99
[2025-01-20] MEDS: Ferrous Sulfate 325 MG TAB PO (20:29)
[2025-01-21 00:15] VITALS: BP 137/76; PULSE 98; RESP 16; TEMP 37; O2SAT 98
--- NOTE | 2025-01-21 07:49 | W.PM.OBPNV1 ---
Date of service: 01/21/25 Time of Service: 07:49 Assessment and Plan Assessment and plan (1) Normal spontaneous vaginal delivery: Status: Acute Assessment and plan: day #2 status post vaginal after labor induction due to poorly controlled pregestational diabetes and chronic hypertension. Overall she is doing well. We are working on social situation arrangements, and living situation. She is bonding well with her . (2) Pregestational diabetes mellitus, modified White class C: Status: Acute Assessment and plan: Blood sugars have remained stable postdelivery. She will do fasting blood sugars at home and report those findings. We would consider either low-dose of long-acting insulin versus oral hypoglycemics if her sugars are out of range. She will need a 2-hour glucose tolerance test around the 6-week breezy. (3) Susceptible to varicella (non-immune), currently : Status: Acute Assessment and plan: Will have immunization (4) Chronic hypertension: Status: Acute Assessment and plan: Continue Procardia 30 mg XL daily. Follow-up in the office in 1, 2, 6 weeks. Subjective Subjective Interval history: Patient seen and examined this morning. Overall feeling fatigued. She has been sleeping intermittently. She is working on adjustment to her . She has been ambulatory, tolerating regular diet. She has no signs of symptomatic anemia despite her low hemoglobin. We had a conversation today regarding her home medications which will include Procardia XL, iron supplementation, vitamins, Colace. She will continue to do Accu-Cheks fasting every morning [place] baby status: Doing well and Bottle feeding well Exam Physical Exam Vital signs: Temp Pulse Resp BP Pulse Ox 98.6 F 98 H 16 137/76 98 01/21/25 00:15 01/21/25 00:15 01/21/25 00:15 01/21/25 00:15 01/21/25 00:15 Vital Signs Reviewed: Yes Constitutional Constitutional: no acute distress HEENT Exam HEENT Exam: Normal Neck Exam Neck Exam: Normal Respiratory Exam Respiratory Exam: Normal Cardiovascular Exam Cardiovascular Exam: Normal Fundal Exam Fundus: Below Umbilicus and Firm Extremities Exam Extremity Exam: Normal and Edema (1+ bilateral); negative Calf Tenderness Skin Exam Skin Exam: Normal Neurological Exam Neurological Exam: Normal Psychiatric Exam Psychiatric Exam: Normal Results Hemoglobin/Hematocrit: Hgb 6.7 g/dL (11.2-15.7) L* 01/20/25 11:55 Hct 21.3 % (36.0-46.0) L 01/20/25 11:55 Abnormal Lab Findings: Abnormal Labs 01/17/25 01/20/25 01/20/25 06:08 05:58 11:55 WBC 13.42 H 12.60 H RBC 2.59 L 2.75 L Hgb 9.7 L 6.4 L* D 6.7 L* Hct 30.9 L 20.2 L* 21.3 L MCV 77 L 78 L 78 L MCH 24.3 L 24.7 L 24.4 L MCHC 31.4 L 31.7 L 31.5 L RDW 14.7 H 15.2 H 15.4 H AST 13 L ALT 12 L Albumin 2.3 L
--- NOTE | 2025-01-21 07:52 | W.PM.OBDISCH ---
Date of service: 01/21/25 Time of Service: 07:52 DS: Diagnosis Discharge Diagnosis (1) Normal spontaneous vaginal delivery: Status: Acute Asessment and Plan: day #2 status post vaginal after labor induction. Overall doing well. Ambulating, tolerating regular diet and oral pain medication with stable vital signs. No symptomatology related to her anemia. She will be discharged on iron (2) Pregestational diabetes mellitus, modified White class C: Status: Acute Asessment and Plan: Will do fasting blood sugars at home and report those to us. Begin either long-acting insulin versus oral hypoglycemics if out of range. 2-hour glucose tolerance test 6 weeks . (3) Susceptible to varicella (non-immune), currently : Status: Acute (4) Chronic hypertension: Status: Acute Asessment and Plan: Procardia XL 30 mg daily Discharge Plan Disposition Patient Disposition: Home Condition: Good Discharge Details Reason For Visit: IOL Admit Date/Time: 01/17/25 05:13 Admit Provider: Jossy Mccann Attending Provider: Jossy Mccann Primary Care Provider: Unknown,Unknown Hospital Course Hospital Course: Patient was admitted just after 37 weeks gestation for labor induction. Indications for induction were due to chronic hypertension and poorly controlled gestational diabetes. She had cervical ripening and subsequently progressed into labor. She had epidural for pain control and had a normal spontaneous vaginal . She did have an increased qualitative blood loss and received some medications at the time of delivery for uterine tonicity. She did have a decreased hemoglobin at 6.7. She remained stable and asymptomatic. She will supplement with iron orally, and her vitamins. She does not warrant transfusion due to lack of symptoms. She is bottlefeeding her . She was placed on Procardia XL 30 mg daily for control of her blood pressure which has stabilized nicely. She had normal glycemia throughout her labor and . She will continue with fasting blood glucose levels at home until follow-up in the office. We would consider oral hypoglycemics versus insulin therapy if warranted. She will have a 2-hour glucose tolerance test after her 6-week checkup. She is bottlefeeding her son who was circumcised at the patient's request. All questions were answered Home Meds and New Rx's Prescriptions: New ibuprofen 600 mg tablet 600 mg PO Q6H PRNQty: 60 0RF docusate sodium [Colace] 100 mg capsule 100 mg PO BID Qty: 30 1RF ferrous sulfate 325 mg (65 mg iron) tablet 325 mg PO BID Qty: 60 1RF nifedipine [Procardia XL] 30 mg tablet extended release 24hr 30 mg PO DAILY Qty: 60 1RF Discontinued Humulin N NPH Insulin KwikPen 100 unit/mL (3 mL) insulin pen 20 unit subcut QAM 90 Days Qty: 18 1RF Humulin N NPH Insulin KwikPen 100 unit/mL (3 mL) insulin pen 34 unit subcut QHS 90 Days Qty: 30.6 1RF Rx Instructions: Injection nightly. No Action PNV #[id number] acid-dha 35 mg iron-5 mg iron-1 mg capsule 1 cap PO DAILY Qty: 90 0RF (DME) OneTouch Verio test strips Strip See Rx Instructions .Route Qty: 100 4RF Rx Instructions: QID (DME) Aerochamber MV Spacer See Rx Instructions .Route Qty: 1 0RF Rx Instructions: As directed (DME) blood-glucose meter [OneTouch Verio Flex meter] Misc See Rx Instructions .Route Qty: 1 0RF Rx Instructions: As directed alcohol swabs Pads, Medicated 1 pad topical QID Qty: 100 4RF (DME) Comfort EZ Pen [place] 33 gauge x 5/16 needle See Rx Instructions .Route Qty: 100 1RF Rx Instructions: As directed for QID testing, Kwik pen (DME) lancets [Onetouch Delica Safety Lancet] 30 gauge misc See Rx Instructions .Route Qty: 100 4RF Rx Instructions: QID Discharge Instructions Additional Instructions: Follow-up with Dr. Mccann or Araceli in 1, 2, 6 weeks Stand Alone Forms: BC Post Vaginal Deliver Activity:: Pelvic rest Equipment/Supplies:: No Equipment Needed Diet:: As Tolerated Discharge Orders Discharge Orders: Discharge Order (Routine); Ordered 01/21/25 Ordered By: Jossy Mccann OB:DS Summary Summary Episiotomy Description: None Laceration Description: Perineal Laceration Extension: Second Degree Contraception Discussed Contraception Discussed: Yes, [place] Gender-Baby A: Male weight: 7 lb 3.699 oz Status at Discharge Functional status at discharge: independent ambulation Overall status at discharge: patient is progressing back to baseline Mental Status: mental status grossly normal Speech and Movement: speech and movement normal Mood: congruent mood Affect: normal affect Exam Physical Exam Vital signs: Temp Pulse Resp BP Pulse Ox 98.6 F 98 H 16 137/76 98 01/21/25 00:15 01/21/25 00:15 01/21/25 00:15 01/21/25 00:15 01/21/25 00:15 Narrative: See physical exam from progress note dated 01/21/2025 [facility] All Active Problems Anemia (Chronic) Normal spontaneous vaginal delivery (Acute) Gestational diabetes (Acute) Group B Streptococcus carrier, +RV culture, currently (Acute) Decreased movement (Acute) Food insecurity (Acute) Elevated liver enzymes (Acute) Chronic hypertension (Acute) Financial insecurity (Acute) Elevated LFTs (Acute) Pregestational diabetes mellitus, modified White class C (Acute) Susceptible to varicella (non-immune), currently (Acute) Chronic hypertension affecting (Acute) BMI 40.0-44.9, adult (Acute) (Acute) Depression (Chronic) Anxiety (Chronic) Medical History Family history of diabetes mellitus in grandmother Family history of diabetes during Elevated glucose Asthma Acute stress reaction Snoring (08/15/16) Tonsillar hypertrophy (10/07/16) Dysmenorrhea in adolescent OCP started 06/2019 Family History Mother Mental disorder DEPRESSION AND ANXIETY Gestational diabetes Substance use disorder off and on about 5 years, clean now GRANDPARENT Diabetes MGM Asthma MGM Social History Smoking/Tobacco Use Status: Never Second Hand Exposure: Yes Smoking risk assessment performed?: Yes Alcohol Intake: never Drug use: Rarely Substance use type: does not use Details: one time tried an edible with marijuana Adopted: No Foster care: No Housing: apartment Education Level: high school Details: senior [employer] 23-24 Pets and animals: Yes (1 bunny) Pets and animals: dog(s) Current gender identity: female What type of physical activity do you participate in: other Details: Lacrosse, basketball Seatbelt use: always Helmet use: Yes Helmet use: always Water heater temp set <120 deg: Yes Fire extinguisher in home: Yes Carbon monox detector in home: Yes Firearms in home: No Do you feel safe at home: Yes Do you feel safe in your relationship?: Yes History History 1 Para 0 Hx # Term Pregnancies 0 Multiple births Hx # Pregnancies Ectopic pregnancies AB induced Hx Number of Living Children AB spontaneous DS: Data Vitals/I&O Vitals and I&O: Vital Signs Temperature 98.6 F 01/21/25 00:15 Temperature Source Oral 01/21/25 00:15 Pulse 98 H 01/21/25 00:15 Pulse Rhythm Regular 01/20/25 07:40 Respiratory Rate 16 01/21/25 00:15 Respiratory Depth Normal 01/19/25 19:45 Blood Pressure 137/76 01/21/25 00:15 Blood Pressure Mean 96 01/21/25 00:15 Pulse Oximetry 98 01/21/25 00:15 Oxygen Delivery Method Room Air 01/17/25 06:02 Oxygen Flow Rate 0 01/17/25 06:02 Pain Level 4 01/20/25 16:12 Comment MD aware 01/19/25 09:54 Data Completed and Pending Labs on day of discharge: Labs from last 24 hours 01/20/25 01/20/25 11:55 05:58 WBC 12.60 H 13.42 H RBC 2.75 L 2.59 L Hgb 6.7 L* 6.4 L* D Hct 21.3 L 20.2 L* MCV 78 L 78 L MCH 24.4 L 24.7 L MCHC 31.5 L 31.7 L RDW 15.4 H 15.2 H Plt Count 228 222 MPV 10.1 10.6
[2025-01-21] MEDS: NIFEdipine-CR 30 MG TABCR PO (08:15)
[2025-01-21] MEDS: Ferrous Sulfate 325 MG TAB PO (08:15)
[2025-01-21] MEDS: Acetaminophen 325 MG TAB 650 MG PO (08:16)
[2025-01-21 08:20] VITALS: BP 131/75; PULSE 96; RESP 16; TEMP 36.7; O2SAT 98
[2025-01-21 11:40] VITALS: BP 132/77; PULSE 97; RESP 18; TEMP 36.9; O2SAT 98
[2025-01-21 15:14] VITALS: BP 133/63; PULSE 92; RESP 18; TEMP 36.9; O2SAT 98
== END 2025-01-21 17:30 | disposition home or self-care (01) | DRG 806 ==
PROVIDERS: Admitting Provider Obstetrics & Gynecology; Visit Provider Obstetrics & Gynecology
DX: O24.12 Pre-existing type 2 diabetes mellitus, in childbirth (principal); O10.02 Pre-existing essential hypertension complicating childbirth; Z37.0 Single live birth; Z28.39 Other underimmunization status; O99.824 Streptococcus B carrier state complicating childbirth; Z3A.37 37 weeks gestation of pregnancy; Z79.4 Long term (current) use of insulin; O69.89X0 Labor and delivery complicated by other cord complications, not applicable or unspecified; O70.1 Second degree perineal laceration during delivery; O99.02 Anemia complicating childbirth; D64.9 Anemia, unspecified
CPT/HCPCS: 59200; 36415; 80053; 85027; 86850; 86900; 86901; 85025; J0290; J1815; J2540; J3490

== ENCOUNTER 2025-02-26 13:29 | Emergency (ER) | payer MEDICAID, SELFPAY ==
[2025-02-26 13:31] VITALS: BP 140/97; PULSE 90; RESP 18; TEMP 36.8; O2SAT 98
--- NOTE | 2025-02-26 13:45 | DI.US_ITS ---
Exam(s) US PELVIS EXAM: US PELVIS CLINICAL HISTORY: vaginal bleeding, delivered her baby 4 weeks ago TECHNIQUE: Transabdominal imaging was performed using standard protocol. COMPARISON: US POCUS EXAM from 01/17/2025 FINDINGS: UTERUS: Retroverted. 7.9 x 4.5 x 6.1 cm Endometrium: 5 mm, homogeneous. No fluid or hemorrhagic debris in the endometrial canal. Myometrium: Unremarkable. Cervix: Unremarkable. OVARIES: Right: Cyst or mass: None. Left: Cyst or mass: None. DOPPLER: Color: Symmetric and uniform flow to both ovaries. No hyperemia. CUL-DE-SAC: Free fluid: None. IMPRESSION: 1. Normal-appearing uterus with endometrial stripe within normal limits. 2. Unremarkable bilateral ovaries. The preliminary [facility] report was reviewed. DATA REPOSITORY:
[2025-02-26 13:46] VITALS: BP 145/84; PULSE 101; O2SAT 98
--- NOTE | 2025-02-26 14:01 | W.ED.GENAD ---
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 Primary Care Provider: Unknown,Unknown ED Provider: Bunny Ceballos Home Meds and New Rx's Prescriptions: No Action (DME) OneTouch Verio test strips Strip See Rx Instructions .Route Qty: 100 4RF Rx Instructions: QID (DME) Aerochamber MV Spacer See Rx Instructions .Route Qty: 1 0RF Rx Instructions: As directed (DME) blood-glucose meter [OneTouch Verio Flex meter] Misc See Rx Instructions .Route Qty: 1 0RF Rx Instructions: As directed alcohol swabs Pads, Medicated 1 pad topical QID Qty: 100 4RF (DME) Comfort EZ Pen [place] 33 gauge x 5/16 needle See Rx Instructions .Route Qty: 100 1RF Rx Instructions: As directed for QID testing, Kwik pen (DME) lancets [Onetouch Delica Safety Lancet] 30 gauge misc See Rx Instructions .Route Qty: 100 4RF Rx Instructions: QID ibuprofen 600 mg tablet 600 mg PO Q6H PRNQty: 60 0RF docusate sodium [Colace] 100 mg capsule 100 mg PO BID Qty: 30 1RF ferrous sulfate 325 mg (65 mg iron) tablet 325 mg PO BID Qty: 60 1RF nifedipine [Procardia XL] 30 mg tablet extended release 24hr 30 mg PO DAILY Qty: 60 1RF HPI General Date/Time Provider Initiated Documentation: 02/26/25 13:44. HPI Narrative: 19 year-old female presents to ED today by POV/ambulating with a chief complaint of vaginal bleeding since this past /. - about 4-5 days now, soaking through a pad every 2-3 hours with heavy clots each day. Patient gave about a month ago- and had stopped bleeding two weeks later, but recently spontaneously started again. Quality described as not overtly painful, some fatigue, no radiation to fever, dizziness, near syncope, nausea/vomiting, dysuria, flank pain, severe pelvic pain. Severity is described as moderate for bleeding. Palliating factors include nothing specific attempted. Provoking factors include nothing specific. Events leading up to the incident/Associated Symptoms: Patient had called [facility] but hadn't heard back. Patient not anticoagulated. Related Data Home Medications ?Medication ?Instructions ?Recorded ?Confirmed inhalational spacing device #1 ea 11/25/22 02/26/25 (Aerochamber MV spacer) alcohol swabs 1 pad topical QID #100 ea 09/14/24 02/26/25 blood-glucose meter (OneTouch #1 ea 09/14/24 02/26/25 Verio Flex Meter) pen needle, diabetic 33 gauge x #100 ea 11/03/24 02/26/2511/26 (Comfort EZ Pen [place]) lancets 30 gauge (Onetouch Delica #100 ea 11/10/24 02/26/25 Safety Lancet) blood sugar diagnostic (OneTouch #100 ea 11/30/24 02/26/25 Verio test strips) docusate sodium 100 mg capsule 100 mg PO BID #30 caps 01/21/25 02/26/25 (Colace) ferrous sulfate 325 mg (65 mg 325 mg PO BID #60 tabs 01/21/25 02/26/25 iron) tablet ibuprofen 600 mg tablet 600 mg PO Q6H PRN #60 tabs 01/21/25 02/26/25 nifedipine 30 mg tablet,extended 30 mg PO DAILY #60 tabs 01/21/25 02/26/25 release 24 hr (Procardia XL) Previous Rx's ?Medication ?Instructions ?Recorded inhalational spacing device #1 ea 11/25/22 (Aerochamber MV spacer) alcohol swabs 1 pad topical QID #100 ea 09/14/24 blood-glucose meter (OneTouch #1 ea 09/14/24 Verio Flex Meter) pen needle, diabetic 33 gauge x #100 ea 11/03/2411/26 (Comfort EZ Pen [place]) lancets 30 gauge (Onetouch Delica #100 ea 11/10/24 Safety Lancet) blood sugar diagnostic (OneTouch #100 ea 11/30/24 Verio test strips) docusate sodium 100 mg capsule 100 mg PO BID #30 caps 01/21/25 (Colace) ferrous sulfate 325 mg (65 mg 325 mg PO BID #60 tabs 01/21/25 iron) tablet ibuprofen 600 mg tablet 600 mg PO Q6H PRN #60 tabs 01/21/25 nifedipine 30 mg tablet,extended 30 mg PO DAILY #60 tabs 01/21/25 release 24 hr (Procardia XL) Allergies Allergy/AdvReac Type Severity Reaction Status Date / Time cabbage Allergy Intermediate HIVES Verified 02/26/25 13:34 No Known Drug Allergies Allergy Other (See Verified 02/26/25 13:34 Comment) General Stated Complaint: INTELLIGENCE CHIEF LAKEISHA: 3 Review of Systems All systems reviewed & are unremarkable except as noted in HPI and below Exam Narrative Exam Narrative: GENERAL APPEARANCE: Well-nourished, non-toxic, awake and alert, atraumatic, no acute distress. SKIN: Warm, pink, dry, intact, without rashes/lesions/ulcerations. HEAD: Normocephalic, atraumatic, normal hair distribution for gender/age. EYES: Normal conjunctiva, no exudates on lids/lashes. ENT: Nares patent, no circumoral cyanosis, no facial swelling NECK: Supple, trachea midline, painless cervical ROM. LUNGS/CHEST: Non-labored respirations, normal A/P diameter, symmetrical expansion, no chest wall deformity HEART (CV/PV): No peripheral edema, no JVD. ABDOMEN: Soft, non-distended, no guarding, no tenderness. Discussed with patient she would like labs/imaging prior to pelvic exam decision, prefers pelvic exam with [facility] and had called them earlier today for this reason. MSK: Normal ROM, no swelling/deformity to bilateral UEs or LEs, moving all extremities without weakness, no cyanosis, spine midline without tenderness, normal curvature. NEURO: Mental Status AAOx4 - alert to person, place, time, events No facial droop, no forehead involvement. Motor: No focal weakness - strength 5/5 in bilateral UEs and LEs, proximal and distal, symmetric. Sensory: sensation intact to light touch globally. Gait normal: patient ambulated without ataxia into ED room. PSYCH: euthymic, cooperative, pleasant, appropriate speech Course Vital Signs Vital signs: Vital Signs Temperature 36.8 C 02/26/25 13:31 Pulse 90 02/26/25 13:31 Respiratory Rate 18 02/26/25 13:31 Blood Pressure 140/97 H 02/26/25 13:31 Pulse Oximetry 98 02/26/25 13:31 Temperature 36.8 C 02/26/25 13:31 Pulse 90 02/26/25 13:31 Respiratory Rate 18 02/26/25 13:31 Blood Pressure 140/97 H 02/26/25 13:31 Pulse Oximetry 98 02/26/25 13:31 Oxygen Delivery Method Room Air 02/26/25 13:31 Oxygen Flow Rate 0 02/26/25 13:31 Pain Level 4 02/26/25 13:31 Medical Decision Making This dictation utilizes [id number] dictation software and may contain unedited grammatical errors. 19 year-old female presents to ED today by POV/ambulating with a chief complaint of vaginal bleeding since this past /. - about 4-5 days now, soaking through a pad every 2-3 hours with heavy clots each day. Patient gave about a month ago- and had stopped bleeding two weeks later, but recently spontaneously started again. Quality described as not overtly painful, some fatigue, no radiation to fever, dizziness, near syncope, nausea/vomiting, dysuria, flank pain, severe pelvic pain. Severity is described as moderate for bleeding. Palliating factors include nothing specific attempted. Provoking factors include nothing specific. Events leading up to the incident/Associated Symptoms: Patient had called [facility] but hadn't heard back. Patients' medical history: Group B streptococcus carrier, gestational diabetes, chronic hypertension affecting , elevated glucose, asthma. Family and social history: Noncontributory. Pertinent exam findings / vital signs include no abdominal tenderness, vital stable without hypotension or tachycardia, benign cardiopulmonary status, neuro intact. Differential / pathologies of concern include retained products, fibroids, endometriosis, ovarian cyst. Diagnostic studies of: -CBC, CMP, UA, PT/PTT, Type and Screen, U/S Pelvic. - CBC shows anemia to 10.6, hematocrit of 35.5 and platelets of 441 - CMP is grossly unremarkable - Magnesium within normal limits - PT/INR all within normal limits - UA shows large amount of blood, no signs of infection - U/S pending at time of shift change - Type and Screen A POS, neg Ab screen. Interventions of: -Discussed with OBGYN on-call Dr. Bocanegra @ 1400- recommends U/S if they can come in, will update with lab & U/S results. ED Course/Assessment/Plan: 19-year-old female presents 1 month after recent with vaginal bleeding- induced at 37 weeks for gestational diabetes, she states that she was bleeding after the and stopped about 2 weeks ago but started again on Friday and has been soaking through a pad every 2-3 hours since then about 4 or 5 days ago, some heavy clotting coming with this but has no signs of overt hemorrhage, patient denies feelings of near syncope. Has no abdominal tenderness. CBC does show anemia to 10.6. Dr. Bocanegra is aware of the patient- will update with U/S results and go over labs to see if they'd like to see her upstairs vs ED vs discharge on Rx. Patient signed out to oncoming provider Destiny Waters PA-C at shift change. Findings not consistent with hemorrhage, peritoneal abdomen. Disposition of Vaginal Bleeding. Patient verbalized understanding of the plan and return to ED criteria and engaged in shared decision making. Medical Records Medical records reviewed: Yes I reviewed the patient's medical records. Imaging Data Radiologic Study: Attestation: I personally reviewed and interpreted this imaging study as follows: Imaging: Ultrasound Lab Data Lab results reviewed: Yes I reviewed the patient's lab results. Labs: Laboratory Tests Range/Units 02/26/25 02/26/25 02/26/25 13:39 13:51 13:51 WBC (4.4-10.8) 10^3/uL 7.60 RBC (3.93-5.22) 10^6/uL 4.41 Hgb (11.2-15.7) g/dL 10.6 L Hct (36.0-46.0) % 35.5 L MCV (80-95) fL 81 MCH (27.0-33.0) pg 24.0 L MCHC (32.0-36.0) % 29.9 L RDW (11.7-14.6) % 17.6 H Plt Count (130-400) 10^3/uL 441 H MPV (8.0-11.0) fL 9.0 Immature Gran % % 0.3 Neutrophils % % 60.6 Lymphocytes % % 31.1 Monocytes % % 6.3 Eosinophils % % 1.2 Basophils % % 0.5 Nucleated RBC % (0.0-0.3) % 0.0 Absolute Neutrophils (1.2-6.7) 10^3/uL 4.61 Absolute Lymphocytes (1.2-3.4) 10^3/uL 2.36 Absolute Monocytes (0.1-0.8) 10^3/uL 0.48 Absolute Eosinophils (0.0-0.7) 10^3/uL 0.09 Absolute Basophils (0.0-0.2) 10^3/uL 0.04 PT (9.1-11.1) sec 10.0 INR (0.9-1.1) 1.0 APTT (20.6-30.2) sec 24.1 Sodium (136-145) mmol/L 139 Potassium (3.5-5.1) mmol/L 4.0 Chloride (98-107) mmol/L 102 Carbon Dioxide (21.0-32.0) mmol/L 28.3 Anion Gap (3-11) mmol/L 8.7 BUN (7-18) mg/dL 12 Creatinine (0.55-1.02) mg/dL 0.6 Est GFR (CKD-EPI 2020) (mL/min/1.73m2) 132.52 Glucose (74-106) mg/dL 129 H Calcium (8.5-10.1) mg/dL 9.4 Magnesium (1.8-2.4) mg/dL 2.0 Cancelled Total Bilirubin (0.2-1.0) mg/dL 0.4 AST (15-37) U/L 13 L ALT (14-59) U/L 27 Alkaline Phosphatase (46-116) U/L 74 Total Protein (6.4-8.2) g/dL 8.2 Albumin (3.4-5.0) g/dL 3.6 Urine Color (Yellow) [place] Urine Clarity (Clear) Sl Cloudy Urine pH (5-8) 8.5 H Ur Specific [place] (1.005-1.025) 1.020 Urine Protein (Neg-Trace) mg/dL 30 H Urine Ketones (Negative) mg/dL Negative Urine Blood (Negative) Large H Urine Nitrite (Negative) Negative Urine Bilirubin (Negative) Negative Urine Urobilinogen (Up to 0.2) mg/dL 0.2 Ur Leukocyte Esterase (Negative) Negative Urine RBC (0-2) HPF >50 H Urine WBC (0-5) HPF Negative Ur Epithelial Cells (Negative) HPF Few Urine Crystals (Negative) HPF Negative Urine Bacteria (Negative) HPF Negative Urine Casts (Negative) LPF Negative Urine Mucus (Negative) Negative Ur Culture Indicated? No Urine Glucose (Negative) mg/dL Negative ABO/Rh A Positive Antibody Screen NEGATIVE PFSH All Active Problems Anemia (Chronic) Normal spontaneous vaginal delivery (Acute) Food insecurity (Acute) Elevated liver enzymes (Acute) Chronic hypertension (Acute) Financial insecurity (Acute) Elevated LFTs (Acute) Pregestational diabetes mellitus, modified White class C (Acute) Susceptible to varicella (non-immune), currently (Acute) BMI 40.0-44.9, adult (Acute) Depression (Chronic) Anxiety (Chronic) Medical History Decreased movement Gestational diabetes Group B Streptococcus carrier, +RV culture, currently Chronic hypertension affecting Family history of diabetes mellitus in grandmother Family history of diabetes during Elevated glucose Asthma Acute stress reaction Snoring (08/15/16) Tonsillar hypertrophy (10/07/16) Dysmenorrhea in adolescent OCP started 06/2019 Family History Mother Mental disorder DEPRESSION AND ANXIETY Gestational diabetes Substance use disorder off and on about 5 years, clean now GRANDPARENT Diabetes MGM Asthma MGM Social History Smoking/Tobacco Use Status: Never Second Hand Exposure: Yes Smoking risk assessment performed?: Yes Alcohol Intake: never Drug use: Rarely Substance use type: does not use Details: one time tried an edible with marijuana Adopted: No Foster care: No Housing: apartment Education Level: high school Details: [employer] 23-24 Pets and animals: Yes (1 bunny) Pets and animals: dog(s) Current gender identity: female What type of physical activity do you participate in: other Details: Lacrosse, basketball Seatbelt use: always Helmet use: Yes Helmet use: always Water heater temp set <120 deg: Yes Fire extinguisher in home: Yes Carbon monox detector in home: Yes Firearms in home: No Do you feel safe at home: Yes Do you feel safe in your relationship?: Yes History History 1 Para 1 Hx # Term Pregnancies 1 Multiple births Hx # Pregnancies Ectopic pregnancies AB induced Hx Number of Living Children 1 AB spontaneous Past Pregnancies Del. Date GA/Weeks # Preg Succ Route Wgt Sex Labor Lgth Anesthesia Location Prov Complic 01/19/25 37 No Yes vaginal 3515.341 [facility]
[2025-02-26 14:08] LABS: Abs Immature Grans 0.02 10^3/uL (0.0-0.06); HCT 35.5 % (36.0-46.0); HGB 10.6 g/dL (11.2-15.7); Immature Grans % 0.3 %; MCH 24.0 pg (27.0-33.0); MCHC 29.9 % (32.0-36.0); MCV 81 fL (80-95); MPV 9.0 fL (8.0-11.0); Platelet Count 441 10^3/uL (130-400); RBC 4.41 10^6/uL (3.93-5.22); RDW 17.6 % (11.7-14.6); RDW-SD 51.8 fL; WBC 7.60 10^3/uL (4.4-10.8)
[2025-02-26 14:21] LABS: Glucose Negative (Negative)
[2025-02-26 14:23] LABS: ALT 27 U/L (14-59); AST 13 U/L (15-37); Albumin 3.6 g/dL (3.4-5.0); Alkaline Phosphatase 74 U/L (46-116); Anion Gap 8.7 mmol/L (3-11); BUN 12 mg/dL (7-18); Bilirubin, Total 0.4 mg/dL (0.2-1.0); CO2 28.3 mmol/L (21.0-32.0); Calcium 9.4 mg/dL (8.5-10.1); Chloride 102 mmol/L (98-107); Estimated GFR 132.52 (mL/min/1.73m2); Glucose 129 mg/dL (74-106); Magnesium 2.0 mg/dL (1.8-2.4); Potassium 4.0 mmol/L (3.5-5.1); Sodium 139 mmol/L (136-145); Total Protein 8.2 g/dL (6.4-8.2)
[2025-02-26 14:26] LABS: INR 1.0 (0.9-1.1); PTT Activated 24.1 sec (20.6-30.2); Prothrombin Time 10.0 sec (9.1-11.1)
[2025-02-26 14:50] VITALS: PULSE 101; PULSE 91; RESP 19; O2SAT 98
[2025-02-26 14:50] LABS: C & S Indicated? No; RBC >50 HPF (0-2); WBC Negative HPF (0-5)
[2025-02-26 15:00] VITALS: PULSE 90; PULSE 91; RESP 15; O2SAT 99
[2025-02-26 16:12] VITALS: BP 144/86; PULSE 86; RESP 16; O2SAT 97
--- NOTE | 2025-02-26 17:17 | DI.[facility]_ITS ---
PROCEDURE INFORMATION: Exam: US Pelvis Transabdominal, Complete, and US Pelvis Transvaginal, Non-obstetric Exam date and time: 02/26/2025 3:02 PM Age: 19 years old Clinical indication: Other: bleeding; Additional info: 19 year old female 4+ weeks with persistent vaginal bleeding and some small clots. Per patient no low abdominal/pelvic pain at this time. TECHNIQUE: Imaging protocol: Real-time complete transabdominal and transvaginal pelvic ultrasound (non-obstetric) with image documentation. Transvaginal imaging was used for better evaluation of the endometrium, adnexa, and/or cervix. COMPARISON: US OB ANDREA WEIGHT 08/12/2024 12:05 FINDINGS: Uterus: Uterus is normal. Endometrial stripe is normal. Right ovary/adnexa: Ovary is normal. No mass. Normal arterial and venous waveforms on duplex. Left ovary/adnexa: Ovary is normal. No mass. Normal arterial and venous waveforms on duplex. Intraperitoneal space: No intraperitoneal fluid. Urinary bladder: Normal. IMPRESSION: No acute findings. Dictated and Authenticated by: Darline Maldonado MD. Orderin Lin Hollis MD
--- NOTE | 2025-02-26 17:20 | W.ED.FU ---
Date of service: 02/26/25 Time of Service: 17:20 Follow Up Plan: Patient was accepted in transition. She remains hemodynamically stable she has ultrasound of her pelvis that does not show evidence of acute abnormality and bleeding has slowed. O Dr. Matthew amezcua and she suspects patient is having a menstrual period as she is not currently breast-feeding. Patient offered oral contraceptives but as she is having an IUD placed on she prefer to wait. She is given close return precautions to return if she develops increased bleeding greater than 1 pad an hour week notice dizziness, fever, or should any new concerns arise. Discharged home in stable condition with stable vitals.
[2025-02-26 17:26] VITALS: BP 103/67; PULSE 94; RESP 15; O2SAT 98
== END 2025-02-26 17:28 | disposition home or self-care (01) ==
PROVIDERS: Physician Assistant; Emergency Provider Physician Assistant
DX: O72.2 Delayed and secondary postpartum hemorrhage (principal)
CPT/HCPCS: 99284; 99283; 36415; 80053; 86850; 86900; 86901; 76856; 81003; 81015; 83735; 85025; 85610; 85730

== ENCOUNTER 2025-03-03 00:58 | Outpatient (CLI) | payer MEDICAID, SELFPAY ==
[2025-03-03 13:49] LABS: Hemoglobin A1C 5.1 % (<5.7)
[2025-03-04 11:47] LABS: Chlamydia Result Negative (Negative); GC Result Negative (Negative)
== END 2025-03-03 00:59 | disposition home or self-care (01) ==
LOC: LBO 00:58 → LBN 14:08
PROVIDERS: Obstetrics & Gynecology; Visit Provider Obstetrics & Gynecology
DX: Z30.430 Encounter for insertion of intrauterine contraceptive device; Z11.3 Encounter for screening for infections with a predominantly sexual mode of transmission
CPT/HCPCS: 36415; 87491; 87591; 82951; 83036

== ENCOUNTER 2025-06-07 18:54 | Emergency (ER) | payer MEDICAID, SELFPAY ==
[2025-06-07 19:01] VITALS: BP 125/80; PULSE 110; RESP 14; TEMP 36.8; O2SAT 97
[2025-06-07 19:08] VITALS: BP 125/80; PULSE 110; RESP 18; TEMP 36.8; O2SAT 97
--- NOTE | 2025-06-07 19:15 | DI.CT_ITS ---
Exam(s) CT ABDOMEN PELVIS W EXAM: CT ABDOMEN PELVIS W CLINICAL HISTORY: RLQ tenderness; appy? TECHNIQUE: Imaging Protocol: Axial computed tomography images with coronal and sagittal reformatted images were created and reviewed. CONTRAST MATERIAL: Intravenous: Omnipaque 350 Contrast volume:100 mL Oral: No COMPARISON: No exams were available for comparison FINDINGS: ABDOMEN: Lung Bases: No acute abnormality. Liver: Normal density. No measurable mass. Portal, Superior Mesenteric, and Splenic Veins: Unremarkable. Gallbladder and Biliary Tract: No radiodense calculus or dilation. Pancreas: Normal density, no abnormal calcifications or inflammatory process. Spleen: Normal. Adrenals: No masses seen. Kidneys: Normal size, contour and axis. No radiodense stones or obstructive uropathy. No masses seen. Abdominal Aorta: Abdominal portion non-dilated. Bowel: No obstruction or bowel wall thickening. Appendix is unremarkable. Peritoneal Cavity: No ascites, collection or mesenteric inflammatory response. No free air. Lymph Nodes: Within normal limits. Bones: Within normal limits for the patient's age. Soft Tissues: Unremarkable. PELVIS: Bladder: Symmetric distention, no gross wall thickening. Reproductive Organs: There is an IUD which appears in good position. There is a 2 cm cyst on the right ovary. The ovaries are unremarkable. Lymph Nodes: Within normal limits. Bones: Within normal limits for the patient's age. IMPRESSION: 1. No acute abdominal or pelvic process. 2. Normal appendix. 3. The preliminary [facility] report was reviewed. RADIATION DOSE DELIVERED: 895.22mGy.cm Total DLP DATA REPOSITORY: All CT scans at this facility are submitted to the National Radiology Data Registry (NRDR) Dose Index Registry (DIR) with the [employer] ([employer]). RADIATION OPTIMIZATION: All CT scans at this facility use at least one of these dose optimization techniques: automated exposure control; mA and/or kV adjustment per patient size (includes targeted exams where dose is matched to clinical indication); or iterative reconstruction.
--- NOTE | 2025-06-07 19:28 | W.ED.GENAD ---
Discharge Plan Disposition Patient Disposition: Home Condition: Stable Discharge Details Clinical Impression: Abdominal pain of unknown cause Primary Care Provider: Unknown,Unknown ED Provider: Bunny Ceballos Home Meds and New Rx's Prescriptions: No Action Mirena 21 mcg/24hr (up to 8 yrs) 52 mg intrauterine device 1 device intrauterine ONCE Rx Instructions: as a single dose nifedipine [Procardia XL] 30 mg tablet extended release 24hr 30 mg PO DAILY Qty: 60 1RF Discharge Instructions Instructions: Abdominal Pain, Adult ED Additional Instructions: You were seen in the emergency department for abdominal pain of unknown cause, you have a small ovarian cyst or dominant follicle on that side that could be causing her discomfort but this could be an infection that is still developing and not visible on imaging yet. He had a mild elevation of your white blood cells which is nonspecific, otherwise your labs are unremarkable, please take Tylenol and ibuprofen and monitor your condition closely, return for any severe acute worsening. Stand Alone Forms: Portal Information, Work Release Discharge Data Discharge Date/Time-TO BE ENTERED AT DEPARTURE: 06/07/25 21:09 HPI General Date/Time Provider Initiated Documentation: 06/07/25 19:10. HPI Narrative: 20 year-old female presents to ED today by POV/ambulating with a chief complaint of right lower quadrant abdominal pain with onset today. Quality described as dull constant aching pain in the right lower abdomen, no radiation to vomiting, dysuria, vaginal bleeding, upper abdominal pain, fever, diarrhea/constipation, flank pain. Severity is described as moderate. Palliating factors include nothing specific. Provoking factors include nothing specific. Events leading up to the incident/Associated Symptoms: Patient denies abdominal surgical history. Patient not anticoagulated. Related Data Home Medications Medication Instructions Recorded Confirmed nifedipine 30 mg tablet,extended 30 mg PO DAILY #60 tabs 01/21/25 06/07/25 release 24 hr (Procardia XL) levonorgestrel (Mirena) 1 device intrauterine ONCE 04/14/25 06/07/25 Previous Rx's Medication Instructions Recorded nifedipine 30 mg tablet,extended 30 mg PO DAILY #60 tabs 01/21/25 release 24 hr (Procardia XL) Allergies Allergy/AdvReac Type Severity Reaction Status Date / Time cabbage Allergy Intermediate HIVES Verified 06/07/25 19:09 General Stated Complaint: Abd Prob LAKEISHA: 3 Review of Systems All systems reviewed & are unremarkable except as noted in HPI and below Exam Narrative Exam Narrative: GENERAL APPEARANCE: Well-nourished, non-toxic, awake and alert, atraumatic, mild acute distress. SKIN: Warm, pink, dry, intact, without rashes/lesions/ulcerations. HEAD: Normocephalic, atraumatic, normal hair distribution for gender/age. EYES: Normal conjunctiva, no exudates on lids/lashes. ENT: Nares patent, no circumoral cyanosis, no facial swelling NECK: Supple, trachea midline, painless cervical ROM. LUNGS/CHEST: Lungs CTA bilaterally-no rhonchi/rales/wheeze diffusely, non-labored respirations, normal A/P diameter, symmetrical expansion, no chest wall deformity HEART (CV/PV): Regular rate and rhythm without murmur, no peripheral edema, no JVD. ABDOMEN: Soft, non-distended, no guarding, right lower quadrant tenderness without rebound tenderness at McBurney's point, negative Garcia sign, no Rovsing's, no CVA tenderness percussion bilaterally MSK: Normal ROM, no swelling/deformity to bilateral UEs or LEs, moving all extremities without weakness, no cyanosis, spine midline without tenderness, normal curvature. NEURO: Mental Status AAOx4 - alert to person, place, time, events No facial droop, no forehead involvement. Motor: No focal weakness - strength 5/5 in bilateral UEs and LEs, proximal and distal, symmetric. Sensory: sensation intact to light touch globally. Gait normal: patient ambulated without ataxia into ED room. PSYCH: euthymic, cooperative, pleasant, appropriate speech Course Vital Signs Vital signs: Vital Signs Temperature 36.8 C 06/07/25 19:01 Pulse 110 H 06/07/25 19:01 Respiratory Rate 14 06/07/25 19:01 Blood Pressure 125/80 06/07/25 19:01 Pulse Oximetry 97 06/07/25 19:01 Temperature 36.8 C 06/07/25 19:08 Temperature Source Oral 06/07/25 19:08 Pulse 110 H 06/07/25 19:08 Respiratory Rate 18 06/07/25 19:08 Blood Pressure 125/80 06/07/25 19:08 Blood Pressure Position Sitting 06/07/25 19:08 Pulse Oximetry 97 06/07/25 19:08 Oxygen Delivery Method Room Air 06/07/25 19:08 Oxygen Flow Rate 0 06/07/25 19:01 Pain Level 6 06/07/25 19:01 Medical Decision Making This dictation utilizes [id number] dictation software and may contain unedited grammatical errors. 20 year-old female presents to ED today by POV/ambulating with a chief complaint of right lower quadrant abdominal pain with onset today. Quality described as dull constant aching pain in the right lower abdomen, no radiation to vomiting, dysuria, vaginal bleeding, upper abdominal pain, fever, diarrhea/constipation, flank pain. Severity is described as moderate. Palliating factors include nothing specific. Provoking factors include nothing specific. Events leading up to the incident/Associated Symptoms: Patient denies abdominal surgical history. Patients' medical history: Gestational diabetes, asthma. Family and social history: Noncontributory. Pertinent exam findings / vital signs include right lower quadrant tenderness without rebound tenderness at McBurney's point, negative Garcia's, no CVA tenderness to percussion bilaterally, no Rovsing's, mild tachycardia on arrival that improved, lungs CTA, benign cardiac exam. Differential / pathologies of concern include appendicitis, ovarian cyst, gastroenteritis, UTI or pyelonephritis. Diagnostic studies of: - CBC, CMP, lactate, lipase, UA, CT ABD/pelvis with contrast. - CBC shows a nonspecific leukocytosis at 11.2 without left shift - Lactate 1.2 - CMP is unremarkable - Lipase within normal limits - UA shows trace blood without any signs of infection - CT abdomen shows 1.4 cm dominant right follicle at ovary which could be causing her pain Interventions of: - None, recommend Tylenol and ibuprofen. ED Course/Assessment/Plan: 20-year-old female presents with right lower quadrant abdominal pain, there is an ovarian cyst or follicle on the right side which could be causing her pain and counseled her to monitor self closely and return for any acute severe worsening otherwise no definitive cause of her pain. Findings not consistent with appendicitis, SBO, large ovarian cyst at risk for torsion, sepsis, UTI, pyelonephritis. Disposition of abdominal pain of unknown cause. Patient verbalized understanding of the plan and return to ED criteria and engaged in shared decision making. Medical Records Medical records reviewed: Yes I reviewed the patient's medical records. Imaging Data Radiologic Study: Attestation: I personally reviewed and interpreted this imaging study as follows: Imaging: CT Scan Radiologist's impression: Exam: CT Abdomen And Pelvis With Contrast Exam date and time: 06/07/2025 7:52 PM Age: 20 years old Clinical indication: Abdominal pain; Localized; Right lower quadrant (rlq); Rlq tenderness, appy? TECHNIQUE: Imaging protocol: Computed tomography of the abdomen and pelvis with contrast. Total images: 315 Radiation optimization: All CT scans at this facility use at least one of these dose optimization techniques: automated exposure control; mA and/or kV adjustment per patient size (includes targeted exams where dose is matched to clinical indication); or iterative reconstruction. Contrast material: OMNIPAQUE 350; Contrast volume: 100 ml; Contrast route: INTRAVENOUS (IV); COMPARISON: No relevant prior studies available. FINDINGS: Lungs: Lung bases unremarkable. Liver: No nodule. Gallbladder and biliary ducts: No definite gallbladder wall thickening, gallstone or biliary dilatation. Pancreas: No mass or peripancreatic stranding. Spleen: No splenomegaly or splenic nodule. Adrenal glands: No adrenal nodule. Kidneys and ureters: No renal mass. No hydronephrosis. No renal or ureteral calculi. Stomach and bowel: No wall thickening or dilatation. Appendix: No evidence of appendicitis. Intraperitoneal space: No free air or free fluid. Vasculature: No abdominal aortic aneurysm. Lymph nodes: No significant adenopathy. Urinary bladder: No definite bladder wall thickening or stone. Reproductive: 1.4 cm dominant follicle right ovary. IUD in retroverted uterus. Bones/joints: No acute bony abnormality. Soft tissues: No significant finding, IMPRESSION: No acute intra-abdominal finding. Dictated and Authenticated by: Rafi Campos MD. Lab Data Lab results reviewed: Yes I reviewed the patient's lab results. Labs: Laboratory Tests Range/Units 06/07/25 06/07/25 19:23 19:44 WBC (4.4-10.8) 10^3/uL 11.25 H RBC (3.93-5.22) 10^6/uL 4.82 Hgb (11.2-15.7) g/dL 12.1 Hct (36.0-46.0) % 37.9 MCV (80-95) fL 79 L MCH (27.0-33.0) pg 25.1 L MCHC (32.0-36.0) % 31.9 L RDW (11.7-14.6) % 14.6 Plt Count (130-400) 10^3/uL 412 H MPV (8.0-11.0) fL 9.0 Immature Gran % % 0.3 Neutrophils % % 61.0 Lymphocytes % % 30.3 Monocytes % % 7.2 Eosinophils % % 0.8 Basophils % % 0.4 Nucleated RBC % (0.0-0.3) % 0.0 Absolute Neutrophils (1.2-6.7) 10^3/uL 6.86 H Absolute Lymphocytes (1.2-3.4) 10^3/uL 3.41 H Absolute Monocytes (0.1-0.8) 10^3/uL 0.81 H Absolute Eosinophils (0.0-0.7) 10^3/uL 0.09 Absolute Basophils (0.0-0.2) 10^3/uL 0.05 VBG Lactate (<or=2.0) mmol/L 1.2 Sodium (136-145) mmol/L 137 Potassium (3.5-5.1) mmol/L 3.7 Chloride (98-107) mmol/L 104 Carbon Dioxide (20.0-31.0) mmol/L 26.6 Anion Gap (3-11) mmol/L 6.4 BUN (9-23) mg/dL 14 Creatinine (0.55-1.02) mg/dL 0.46 L Est GFR (CKD-EPI 2020) (mL/min/1.73m2) 173.01 Glucose (74-106) mg/dL 139 H Calcium (8.3-10.6) mg/dL 9.5 Total Bilirubin (0.2-1.2) mg/dL 0.30 AST (<34) U/L 15 ALT (10-49) U/L 20 Alkaline Phosphatase (46-116) U/L 61 Total Protein (5.7-8.2) g/dL 8.3 H Albumin (3.2-5.0) g/dL 4.7 Lipase (<53) U/L 31 Urine Color (Yellow) Yellow Urine Clarity (Clear) Clear Urine pH (5-8) 5.5 Ur Specific Buckley (1.005-1.025) >= 1.030 H Urine Protein (Neg-Trace) mg/dL Trace Urine Ketones (Negative) mg/dL Negative Urine Blood (Negative) Trace-lysed H Urine Nitrite (Negative) Negative Urine Bilirubin (Negative) Negative Urine Urobilinogen (Up to 0.2) mg/dL 0.2 Ur Leukocyte Esterase (Negative) Negative Urine RBC (0-2) HPF 0-2 Urine WBC (0-5) HPF 0-2 Ur Epithelial Cells (Negative) HPF Many Urine Crystals (Negative) HPF Negative Urine Bacteria (Negative) HPF Packed Urine Casts (Negative) LPF Negative Urine Mucus (Negative) Negative Ur Culture Indicated? No Urine Glucose (Negative) mg/dL Negative PFSH All Active Problems (Updated 06/07/25 @ 20:53 by ÁNGEL Del Toro) Abdominal pain of unknown cause (Acute) IUD surveillance (Acute) Mirena system placed 02/2025 Anemia (Chronic) Food insecurity (Acute) Elevated liver enzymes (Acute) Chronic hypertension (Acute) Financial insecurity (Acute) Elevated LFTs (Acute) BMI 40.0-44.9, adult (Acute) Depression (Chronic) Anxiety (Chronic) Medical History (Updated 06/07/25 @ 20:53 by ÁNGEL Del Toro) Susceptible to varicella (non-immune), currently Encounter for IUD insertion Normal spontaneous vaginal delivery Pregestational diabetes mellitus, modified White class C Decreased movement Gestational diabetes Group B Streptococcus carrier, +RV culture, currently Chronic hypertension affecting Family history of diabetes mellitus in grandmother Family history of diabetes during Elevated glucose Asthma Acute stress reaction Snoring (08/15/16) Tonsillar hypertrophy (10/07/16) Dysmenorrhea in adolescent OCP started 06/2019 Family History Mother Mental disorder DEPRESSION AND ANXIETY Gestational diabetes Substance use disorder off and on about 5 years, clean now GRANDPARENT Diabetes MGM Asthma MGM Social History Smoking/Tobacco Use Status: Never Second Hand Exposure: Yes Smoking risk assessment performed?: Yes Alcohol Intake: never Drug use: Rarely Substance use type: does not use Details: one time tried an edible with marijuana Adopted: No Foster care: No Housing: apartment Education Level: high school Details: senior LI 23-24 Pets and animals: Yes (1 bunny) Pets and animals: dog(s) Current gender identity: female What type of physical activity do you participate in: other Details: Lacrosse, basketball Seatbelt use: always Helmet use: Yes Helmet use: always Water heater temp set <120 deg: Yes Fire extinguisher in home: Yes Carbon monox detector in home: Yes Firearms in home: No Do you feel safe at home: Yes Do you feel safe in your relationship?: Yes History History 1 Para 1 Hx # Term Pregnancies 1 Multiple births Hx # Pregnancies Ectopic pregnancies AB induced Hx Number of Living Children 1 AB spontaneous Past Pregnancies Del. Date GA/Weeks # Preg Succ Route Wgt Sex Labor Lgth Anesthesia Location [facility] 01/19/25 37 No Yes vaginal 3515.341 g Male Araceli
[2025-06-07 19:47] LABS: Glucose Negative (Negative)
[2025-06-07] MEDS: Omnipaque 350 MG/ML 100 ML BTL IJ (19:48)
[2025-06-07] MEDS: Normal Saline - Diluent 50 ML VIAL IJ (19:49)
[2025-06-07] MEDS: Normal Saline Flush 10 ML SYR IVP (19:49)
[2025-06-07 19:51] LABS: Abs Immature Grans 0.03 10^3/uL (0.0-0.06); HCT 37.9 % (36.0-46.0); HGB 12.1 g/dL (11.2-15.7); Immature Grans % 0.3 %; MCH 25.1 pg (27.0-33.0); MCHC 31.9 % (32.0-36.0); MCV 79 fL (80-95); MPV 9.0 fL (8.0-11.0); Platelet Count 412 10^3/uL (130-400); RBC 4.82 10^6/uL (3.93-5.22); RDW 14.6 % (11.7-14.6); RDW-SD 41.4 fL; WBC 11.25 10^3/uL (4.4-10.8)
[2025-06-07 19:54] LABS: RBC 0-2 HPF (0-2); WBC 0-2 HPF (0-5)
[2025-06-07 19:55] LABS: C & S Indicated? No
[2025-06-07 20:09] LABS: Lipase 31 U/L (<53)
[2025-06-07 20:10] LABS: ALT 20 U/L (10-49); AST 15 U/L (<34); Albumin 4.7 g/dL (3.2-5.0); Alkaline Phosphatase 61 U/L (46-116); Anion Gap 6.4 mmol/L (3-11); BUN 14 mg/dL (9-23); Bilirubin, Total 0.30 mg/dL (0.2-1.2); CO2 26.6 mmol/L (20.0-31.0); Calcium 9.5 mg/dL (8.3-10.6); Chloride 104 mmol/L (98-107); Glucose 139 mg/dL (74-106); Potassium 3.7 mmol/L (3.5-5.1); Sodium 137 mmol/L (136-145); Total Protein 8.3 g/dL (5.7-8.2)
--- NOTE | 2025-06-07 20:44 | DI.[facility]_ITS ---
PROCEDURE INFORMATION: Exam: CT Abdomen And Pelvis With Contrast Exam date and time: 06/07/2025 7:52 PM Age: 20 years old Clinical indication: Abdominal pain; Localized; Right lower quadrant (rlq); Rlq tenderness, appy? TECHNIQUE: Imaging protocol: Computed tomography of the abdomen and pelvis with contrast. Total images: 315 Radiation optimization: All CT scans at this facility use at least one of these dose optimization techniques: automated exposure control; mA and/or kV adjustment per patient size (includes targeted exams where dose is matched to clinical indication); or iterative reconstruction. Contrast material: OMNIPAQUE 350; Contrast volume: 100 ml; Contrast route: INTRAVENOUS (IV); COMPARISON: No relevant prior studies available. FINDINGS: Lungs: Lung bases unremarkable. Liver: No nodule. Gallbladder and biliary ducts: No definite gallbladder wall thickening, gallstone or biliary dilatation. Pancreas: No mass or peripancreatic stranding. Spleen: No splenomegaly or splenic nodule. Adrenal glands: No adrenal nodule. Kidneys and ureters: No renal mass. No hydronephrosis. No renal or ureteral calculi. Stomach and bowel: No wall thickening or dilatation. Appendix: No evidence of appendicitis. Intraperitoneal space: No free air or free fluid. Vasculature: No abdominal aortic aneurysm. Lymph nodes: No significant adenopathy. Urinary bladder: No definite bladder wall thickening or stone. Reproductive: 1.4 cm dominant follicle right ovary. IUD in retroverted uterus. Bones/joints: No acute bony abnormality. Soft tissues: No significant finding, IMPRESSION: No acute intra-abdominal finding. Dictated and Authenticated by: Rafi Campos MD. Orderin Lin Hollis MD
[2025-06-07 21:01] VITALS: BP 139/100; PULSE 100; RESP 15; TEMP 36.7; O2SAT 97
== END 2025-06-07 21:09 | disposition home or self-care (01) ==
PROVIDERS: Emergency Provider Physician Assistant
DX: R10.31 Right lower quadrant pain (principal)
CPT/HCPCS: 36415; 80053; 81025; 83690; 99285; 74177; 81003; 81015; 83605; 85025; 99283; J3490